=== PATIENT | male | born 1985 | race Hispanic/Latino ===

== ENCOUNTER 2019-11-22 20:42 | Emergency (ER) | payer SELFPAY ==
[~2019-11-22] VITALS: Ht 175.3 cm; Wt 68.0 kg
--- NOTE | 2019-11-22 22:04 | Emergency Department Note ---
History of Present Illnes History of Present Illness Chief Complaint: Back Pain History of Present Illness This is a 34 year old male, history of anxiety and depression, who presents with a acute exacerbation of chronic back pain issue. Patient was brought in by EMS. Patient states last week he was helping to move furniture as well as doing some painting, and then 2 days ago he began to have severe bilateral low back pain, radiating to both buttocks. He denies any numbness, tingling, lower extremity weakness, bowel or bladder dysfunction, fever, or chills. He has taken Tylenol for the pain, without relief. Patient states that he intermittently has trouble with his back, and is unaware of any specific injury. Historian: Patient Arrival Mode: [facility] Provider Required: No Onset (how long ago): day(s) (2) Location: low back Quality: sharp, stabbing, squeezing Radiation: Reports extremity (BLE) Severity: severe Onset quality: sudden Duration (how long): day(s) (2) Timing of current episode: constant Progression: unchanged Chronicity: new Relieving factors: none Exacerbating factors: none Associated symptoms: Reports denies other symptoms; Denies chest pain, Denies fever/chills, Denies nausea/vomiting Treatments prior to arrival: other (Tylenol) Risk factors: Previous Back apin Past Medical/Family History Physician Review I have reviewed the patient's past medical and family history. Any updates have been documented here. Past Medical History Recent Fever: No Clinical Suspicion of Infectio: No New/Unexplained Change in Ment: No Past Medical History: None Past Surgical History: None Other Surgery: RIGHT THUMB TENDON REPAIR Social History Smoking Cessation: Current every day smoker Counseling Performed: Yes Any Illegal Drug Use: No TB Exposure/Symptoms: No Physically hurt or threatened: No Family History Family history of heart diseas: No Other Last Tetanus: UTD Any Pre-Existing Lines (PICC,: No Review of Systems Review of Systems Constitutional: Denies chills, Denies fever EENTM: Reports no symptoms Cardiovascular: Reports no symptoms Respiratory: Reports no symptoms Gastrointestinal: Reports no symptoms Musculoskeletal: Reports back pain (low back), Reports muscle pain, Reports muscle stiffness Integumentary: Reports no symptoms Neurological: Denies numbness, Denies paresthesia, Denies tingling, Denies tremors, Denies weakness Psychological: Denies no symptoms Review of other systems: All other systems negative Physical Exam Related Data Allergies: Coded Allergies: No Known Allergies (Unverified , 11/15/12) Vital signs reviewed: Yes Physical Exam CONSTITUTIONAL Constitutional: Present well-developed, Present well-nourished; Absent distressed, Absent ill appearing HENT HENT: Present normocephalic, Present atraumatic, Present oropharynx clear/moist, Present nose normal HENT L/R: Present left ext ear normal, Present right ext ear normal EYES Eyes: Reports PERRL, Reports conjunctivae normal NECK Neck: Present ROM normal PULMONARY Pulmonary: Present effort normal, Present breath sounds normal CARDIOVASCULAR Cardiovascular: Present regular rhythm, Present heart sounds normal, Present capillary refill normal, Present normal rate GASTROINTESTINAL Abdominal: Present soft, Present nontender, Present bowel sounds normal GENITOURINARY Genitourinary: Present exam deferred SKIN Skin: Present warm, Present dry; Absent rash MUSCULOSKELETAL Musculoskeletal: Present tenderness (lumbar paraspinal muscles and bilateral glutes;), Present other (tenderness to palpation bilateral upper, mid, and lower lumbar paraspinal muscles; no significant lumbar vertebral point tenderness; positive straight leg raise bilaterally at 10;) NEUROLOGICAL Neurological: Present alert, Present oriented x 3; Absent cranial nerve deficit PSYCHOLOGICAL Psychological: Present mood/affect normal, Present judgement normal Assessment & Plan Medical Decision Making MDM - Apply ice to the area pain for 15-20 minutes 3-4 times per day, to help with pain - Take medications as prescribed. - Follow-up with your primary care physician, for further evaluation of your ongoing back issues and possibly for an MRI of the lumbar spine; Assessment & Plan Final Impression: (1) Low back pain (2) Lumbar radiculopathy (3) Anxiety Depart Disposition: HOME, S[facility] Meds Active Scripts Acetaminophen/Codeine* (TYLENOL # 3*) 1 Ea Tab, 1-2 TAB PO Q6H PRN for pain, #12 TAB 0 [address]ills [address] NOT take and drive or operate machinery. Prov:TE FRENCH MD 11/22/19 Ibuprofen (IBUPROFEN) 400 Mg Tablet, 600 MG PO Q6H for pain, #20 TAB 0 Refills Prov:TE FRENCH MD 11/22/19 Prednisone (PREDNISONE) 20 Mg Tab, 50 MG PO DAILY for back pain and inflammation, #7 TAB 0 Refills Prov:TE FRENCH MD 11/22/19 TE FRENCH MD Nov 22, 2019 22:04
[2019-11-22] MEDS ORDERED: HYDROCODONE/APAP 5MG-325MG TAB ONE (22:11)
[2019-11-22] MEDS ORDERED: HYDROCODONE/APAP 5MG-325MG TAB PO ONE (22:15)
[2019-11-22] MEDS ORDERED: PREDNISONE 20 MG TAB PO ONE (23:15)
[2019-11-22] MEDS ORDERED: PREDNISONE20 MG PO (23:15)
[2019-11-22] MEDS ORDERED: KETOROLAC TROMETHAMINE 60 MG/2 ML VIAL IM ONE (23:15)
[2019-11-22] MEDS ORDERED: TYLENOL # 31 EA PO ×2 (23:18→23:32)
[2019-11-22] MEDS ORDERED: IBUPROFEN400 MG PO (23:21)
--- OUTSIDE RECORDS SUMMARY | 2019-11-22 23:31 | XMS REPORT | Clinical Summary ---
Author Author [facility] Organization [facility] Address Unknown Phone Unavailable Care Team Providers [employer] Founder Name Role Phone Marquis Dowell MD PCP Allergies No Known Allergies Medications End Date Status Medication Sig Dispensed Refills Start Date Active diazePAM (VALIUM) 10 mg Take 1 tablet 60 tablet 2 tabletIndications: Panic by mouth 2 0 disorder times daily as needed for Anxiety. Active FLUoxetine (PROZAC) 20 mg Take 4 360 capsule 0 capsuleIndications: Panic capsules by 0 disorder mouth daily. Active buPROPion (WELLBUTRIN XL) Take 1 tablet 90 tablet 0 150 mg extended release by mouth 0 tabletIndications: Panic every disorder, Depressive morning. disorder 12/23/2018 Discontinued (Reorder) FLUoxetine (PROZAC) 20 mg Take 2 90 capsule 0 capsuleIndications: Panic capsules by 9 disorder mouth daily. 02/23/2019 Discontinued (Reorder) FLUoxetine (PROZAC) 20 mg Take 2 180 capsule 0 capsuleIndications: Panic capsules by 9 disorder mouth daily. 02/23/2019 Discontinued (Reorder) FLUoxetine (PROZAC) 20 mg Take 3 90 capsule 2 capsuleIndications: Panic capsules by 9 disorder mouth daily. 02/23/2019 Discontinued (Reorder) diazePAM (VALIUM) 10 mg Take 1 tablet 30 tablet 2 tabletIndications: Panic by mouth 9 disorder daily as needed for Anxiety. 02/23/2019 Discontinued (Reorder) diazePAM (VALIUM) 10 mg Take 1 tablet 30 tablet 2 tabletIndications: Panic by mouth 9 disorder daily as needed for Anxiety. 05/18/2019 Discontinued (Reorder) FLUoxetine (PROZAC) 20 mg Take 3 90 capsule 2 capsuleIndications: Panic capsules by 9 disorder mouth daily. 05/18/2019 Discontinued (Reorder) diazePAM (VALIUM) 10 mg Take 1 tablet 30 tablet 2 tabletIndications: Panic by mouth 9 disorder daily as needed for Anxiety. 08/16/2019 Discontinued FLUoxetine (PROZAC) 20 mg Take 4 120 capsule 2 capsuleIndications: Panic capsules by 0 disorder mouth daily. 08/16/2019 Discontinued ARIPiprazole (ABILIFY) 5 Take half to 30 tablet 2 mg tabletIndications: 1 tablet by 0 Panic disorder, SAUD mouth daily. (generalized anxiety disorder), Depressive disorder 08/16/2019 Discontinued diazePAM (VALIUM) 10 mg Take 1 tablet 30 tablet 2 tabletIndications: Panic by mouth 0 disorder daily as needed for Anxiety. 10/02/2019 Discontinued (Reorder) FLUoxetine (PROZAC) 20 mg Take 4 120 capsule 1 capsuleIndications: Panic capsules by 0 disorder mouth daily. 10/02/2019 Discontinued (Reorder) ARIPiprazole (ABILIFY) 5 Take half to 30 tablet 1 mg tabletIndications: 1 tablet by 0 Panic disorder, SAUD mouth daily. (generalized anxiety disorder), Depressive disorder 10/02/2019 Discontinued (Reorder) diazePAM (VALIUM) 10 mg Take 1 tablet 30 tablet 1 tabletIndications: Panic by mouth 0 disorder daily as needed for Anxiety. 11/16/2019 Discontinued (Reorder) FLUoxetine (PROZAC) 20 mg Take 4 120 capsule 1 capsuleIndications: Panic capsules by 0 disorder mouth daily. 11/16/2019 Discontinued (Alternate ther apy) ARIPiprazole (ABILIFY) 5 Take 1/2 to 1 30 tablet 1 mg tabletIndications: tablet by 0 Panic disorder, SAUD mouth daily. (generalized anxiety disorder), Depressive disorder 11/16/2019 Discontinued (Reorder) diazePAM (VALIUM) 10 mg Take 1 tablet 30 tablet 1 tabletIndications: Panic by mouth 0 disorder daily as needed for Anxiety. Active Problems Problem Noted Date Panic disorder 05/06/2012 Generalized anxiety disorder 05/06/2012 Back pain 08/04/2010 Ruptured extensor tendon of hand or wrist 08/29/2009 Medication refill Encounters Care Team Description Date Type Specialty Donte Arboleda MD SAUD (generalized anxiety disorder) (Prim regan Dx); Panic disorder; Depressive disorder 11/16/2019 Telemedicine Psychiatry Marquis Dowell MD Pain of joint of left ankle and foot 11/01/2019 Ancillary Radiology Procedure Marquis Dowell MD ERRONEOUS ENCOUNTER--DISREGARD (Primary Dx) 10/06/2019 Telephonic Family Practice Encounter Katerina Sampson RN 10/04/2019 Nurse Triage Donte Arboleda MD Medications 10/02/2019 Refill Psychiatry Donte Arboleda MD Medications 08/16/2019 Refill Psychiatry Donte Arboleda MD SAUD (generalized anxiety disorder) (Prim regan Dx); Panic disorder; Depressive disorder 05/18/2019 Office Visit Psychiatry Dg Caba DDS Dental calculus (Primary Dx) 03/20/2019 Office Visit Dentistry Marquis Dowell MD Livingston, Robin K, MD Panic disorder 02/23/2019 Office Visit Psychiatry Dg Caba DDS Dental decay (Primary Dx) 01/31/2019 Office Visit Dentistry Marquis Dowell MD Pain of joint of left ankle and foot (Pr imary Dx); Pain in joint, multiple sites 01/03/2019 Office Visit Family Practice Marquis Dowell MD 01/03/2019 Orders Only Family Practice Donte Arboleda MD Medications 12/23/2018 Refill Psychiatry Dg Caba DDS Dental plaque (Primary Dx); Gingivitis 12/21/2018 Office Visit Dentistry Marquis Dowell MD Pain in joint, multiple sites 11/24/2018 Ancillary Radiology Procedure Marquis Dowell MD Iron deficiency anemia, unspecified iron deficiency anemia type (Primary Dx); Pain in joint, multiple sites 11/24/2018 Office Visit Family Practice after 11/21/2018 Immunizations Name Administration Dates Next Due Influenza, 01/03/2019 (Deferred: Patie nt Refused), 01/14/2018 Vaccine<FLUCELVAX>(Multi- Dose) Tdap (Tetanus Toxoid, 01/14/2018 Reduced Diphtheria Toxoid And Acellular Pertussis, Absorbed) Family History Medical History Relation Name Comments Hypertension Mother Relation Name Status Comments Brother Alive Father Alive Mother Alive Sister Alive Sister Alive Social History Date Tobacco Use Types Packs/Day Years Used Former Smoker Cigarettes Smokeless Tobacco: Former User Tobacco Cessation: Counseling Given: No Comments: occasionally Drinks/Week oz/Week Comments Alcohol Use social Yes Food Insecurity Answer Date Recorded Within the past 12 months, you worried that your Never jessica e 01/14/2018 food would run out before you got money to buy more. Within the past 12 months, the food you bought Never true 01/14/2018 just didn't last and you didn't have mo deshawn to get more. Sex Assigned at Date Recorded Not on file Industry Job Start Date Occupation Not on file Not on file Not on file Travel End Travel History Travel Start No recent travel history available. Date Recorded COVID-19 Exposure Response 11/01/2019 11:30 AM CDT In the last month, have you been in contact with No / Unsure someone who was confirmed or suspected to have Coronavirus / COVID-19? 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 Body Mass Index Plan of Treatment Care Team Description Date Type Specialty 11/30/2019 Lab Appointment Lab Donte Arboleda MD [address] [facility] 2nd Floor [id number] [place] [address] 02/01/2020 Telemedicine Psychiatry Procedures Comments Procedure Name Priority Date/Time Associated Diag nosis XRAY FOOT 3 VIEWS MIN Routine 11/01/2019 Pain of joint of left 11:46 AM CDT ankle and foot FECAL OCCULT BLOOD Routine 12/06/2018 Iron defici ency anemia, 4:47 PM CDT unspecified iron deficiency anemia type XRAY HAND 2 VIEWS Routine 11/24/2018 Pain in join t, multiple 4:28 PM CDT sites XRAY SHOULDER 2 VIEWS MIN Routine 11/24/2018 Pain in joint, multiple 4:28 PM CDT sites XRAY NECK SOFT TISSUE Routine 11/24/2018 Pain in joint, multiple 4:28 PM CDT sites HGB FRACTIONATION Routine 11/24/2018 Iron deficie ncy anemia, 4:10 PM CDT unspecified iron deficiency anemia type CCP IGG ABS Routine 11/24/2018 Iron deficiency anemia, 4:10 PM CDT unspecified iron deficiency anemia type Pain in joint, multiple sites RA FACTOR Routine 11/24/2018 Iron deficiency anemia, 4:10 PM CDT unspecified iron deficiency anemia type Pain in joint, multiple sites VIVEK Routine 11/24/2018 Iron deficiency anemia, 4:10 PM CDT unspecified iron deficiency anemia type Pain in joint, multiple sites SED RATE Routine 11/24/2018 Iron deficiency anemia, 4:10 PM CDT unspecified iron deficiency anemia type Pain in joint, multiple sites CBC Routine 11/24/2018 Iron deficiency anemia, 4:10 PM CDT unspecified iron deficiency anemia type CBC/DIFF Routine 11/24/2018 Iron deficiency anemia, 4:10 PM CDT unspecified iron deficiency anemia type after 11/21/2018 Results * XRAY FOOT 3 VIEWS MIN (11/01/2019 11:46 AM CDT) Specimen Impressions Performed At IMPRESSION: [facility] No acute osseous lesion. Signed By: Juan Adams MD, 11/01/2019 1:07 PM Narrative Performed At Left foot 3 views SMS HISTORY: left foot pain COMPARISON: None DISCUSSION: No displaced fracture or malalignment. The joint spaces are well maintained wi thout definite osseous erosion. The visualized soft tissues appear unre markable. Procedure Note Jeffery Barr/Yudelkaog In - 11/01/2019 1:13 PM CDT Left foot 3 views HISTORY: left foot pain COMPARISON: None DISCUSSION: No displaced fracture or malalignment. The joint spaces are well maintained without definite osseous erosion. The visualized soft tissues appear unremarkable. IMPRESSION IMPRESSION: No acute osseous lesion. Signed By: Juan Adams MD, 11/01/2019 1:07 PM Performing Organization Address [facility] Ph one Number SMS * Fecal Occult Blood (12/06/2018 4:47 PM CDT) Occult Blood Negative Negative [facility] Specimen Stool - Feces Performing Organization Address [facility] Ph one Number [facility] [address] [place] [address] [facility] * XRAY HAND 2 VIEWS (11/24/2018 4:28 PM CDT) Specimen Impressions Performed At IMPRESSION: [facility] No acute radiographic abnormalities. Dictated By: Eldon Mcnair MD, 8:56 AM I have reviewed the study and agree wit h the findings in this report. Signed By: Sohail Quiñones DO, 11/25/2018 10 :44 AM Narrative Performed At EXAM: XRAY HAND 2 VIEWS - 2 Images [facility] HISTORY: hand pain COMPARISON: Right finger radiograph fro 08/19/2009 DISCUSSION: Bone: No evidence of a fracture or malalignme nt. Joints: The joint spaces are well maintained an d no erosions. Soft tissues: Unremarkable. Procedure Note Jeffery Barr/Mammog In - 11/25/2018 10:50 AM CDT EXAM: XRAY HAND 2 VIEWS - 2 Images HISTORY: hand pain COMPARISON: Right finger radiograph from 08/19/2009 DISCUSSION: Bone: No evidence of a fracture or malalignment. Joints: The joint spaces are well maintained and no erosions. Soft tissues: Unremarkable. IMPRESSION IMPRESSION: No acute radiographic abnormalities. Dictated By: Eldon Mcnair MD, 11/25/2018 8:56 AM I have reviewed the study and agree with the findings in this report. Signed By: Sohail Quiñones DO, 11/25/2018 10:44 AM Performing Organization Address [facility] one Number SMS * XRAY SHOULDER 2 VIEWS MIN (11/24/2018 4:28 PM CDT) Specimen Impressions Performed At IMPRESSION: [facility] No acute radiographic abnormalities. Dictated By: Eldon Mcnair MD, 9 9:04 AM I have reviewed the study and agree wit h the findings in this report. Signed By: Sohail Quiñones DO, 11/25/2018 10 :44 AM Narrative Performed At EXAM: XRAY RIGHT SHOULDER 2 VIEWS MIN - 3 Images [facility] HISTORY: right shoulder pain COMPARISON: None DISCUSSION: Bone: No evidence of a fracture or malalignme nt. Joints: The joint spaces are well maintained an d no erosions. Adequate internal and external rotation Soft tissues: Unremarkable. Procedure Note Interface, Rad/Mammog In - 11/25/2018 10:49 AM CDT EXAM: XRAY RIGHT SHOULDER 2 VIEWS MIN - 3 Images HISTORY: right shoulder pain COMPARISON: None DISCUSSION: Bone: No evidence of a fracture or malalignment. Joints: The joint spaces are well maintained and no erosions. Adequate internal and external rotation Soft tissues: Unremarkable. IMPRESSION IMPRESSION: No acute radiographic abnormalities. Dictated By: Eldon Mcnair MD, 11/25/2018 9:04 AM I have reviewed the study and agree with the findings in this report. Signed By: Sohail Quiñones DO, 11/25/2018 10:44 AM Performing Organization Address [facility] one Number SMS * XRAY NECK SOFT TISSUE (11/24/2018 4:28 PM CDT) Specimen Impressions Performed At IMPRESSION: [facility] No acute radiographic abnormality. If concern for soft tissue mass recomme nd CT with contrast of the soft tissue neck for further evaluation. Dictated By: Eldon Mcnair MD, 9 9:35 AM I have reviewed the study and agree wit h the findings in this report. Signed By: Sohail Quiñones DO, 11/25/2018 10 :44 AM Narrative Performed At EXAM: Soft Tissue Neck RADIOGRAPH SMS TECHNIQUE 2 images HISTORY: neck pain COMPARISON: None DISCUSSION: On the lateral view, the cervical spine is visualized from the level of the skull base to C6. Mild straightening of the normal cervic al lordosis No acute displaced fracture, within the limitations of this exam. Discs and Uncovertebral Joints: The disc spaces are well-maintained. Facet Joints: Unremarkable. Soft Tissue: Questionable soft tissue fullness at th e base of the left neck. Procedure Note Interface, Rad/Mammog In - 11/25/2018 10:49 AM CDT EXAM: Soft Tissue Neck RADIOGRAPH TECHNIQUE 2 images HISTORY: neck pain COMPARISON: None DISCUSSION: On the lateral view, the cervical spine is visualized from the level of the skull base to C6. Mild straightening of the normal cervical lordosis No acute displaced fracture, within the limitations of this exam. Discs and Uncovertebral Joints: The disc spaces are well-maintained. Facet Joints: Unremarkable. Soft Tissue: Questionable soft tissue fullness at the base of the left neck. IMPRESSION IMPRESSION: No acute radiographic abnormality. If concern for soft tissue mass recommend CT with contrast of the soft tissue neck for further evaluation. Dictated By: Eldon Mcnair MD, 11/25/2018 9:35 AM I have reviewed the study and agree with the findings in this report. Signed By: Sohail Quiñones DO, 11/25/2018 10:44 AM Performing Organization Address City/State/Zipcode Ph one Number SMS * CBC/Diff (11/24/2018 4:10 PM CDT) WBC 10.7 4.5 - 12.0 K/uL [facility] RBC 4.63 4.60 - 6.20 M/uL [facility] Hemoglobin 14.2 14.0 - 18.0 g/dL [facility] Hematocrit 44.1 40.0 - 54.0 % [facility] MCV 95.2 (H) 82.0 - 92.0 fL [facility] MCH 30.7 27.0 - 31.0 pg [facility] MCHC 32.2 32.0 - 36.0 g/dL [facility] RDW 45.3 (H) 35.1 - 43.9 fL [facility] Platelet 237 150 - 400 K/uL [facility] Mean Platelet 11.2 9.4 - 12.4 fL [facility] Percent NRBC 0.0 % [facility] Neutrophil 58.3 34.0 - 67.9 % [facility] Lymphs 31.1 21.8 - 50.0 % [facility] Monocytes 7.6 5.3 - 12.0 % [facility] Eos 1.4 0.8 - 5.0 % [facility] Basos 0.7 0.2 - 1.2 % [facility] Immature 0.9 (H) 0.0 - 0.5 % [facility] Granul[facility] Neutrophils 6.23 (H) 1.78 - 5.36 K/uL [facility] (Absolute) [facility] Lymphs 3.32 1.32 - 3.57 K/uL [facility] (Absolute) [facility] Monocytes(Absol 0.81 0.30 - 0.82 K/uL [facility] anne marie) LABORAT[facility] Eos (Absolute) 0.15 0.04 - 0.54 K/uL [facility] Baso (Absolute) 0.08 0.01 - 0.08 K/uL [facility] Immature Grans 0.10 (H) 0.00 - 0.03 K/uL [facility] (Abs) [facility] Absolute NRBC 0.00 K/uL [facility] Specimen Blood Performing Organization Address [facility] one Number [facility] [address] [place] [address] * CCP Anitbodies IgG & IgA (11/24/2018 4:10 PM CDT) CCP Antibodies 6 0 - 19 units BT [facility] IgG/IgA Comment: Negative <20 Weak positive 20 - 39 Moderate positive 40 - 59 Strong positive >59 Specimen Blood Narrative Performed At Performed at: 01 - [facility] [address] [place] [address] [address]: Aurora Gautam MD, Phone : [phone] Performing Organization Address [facility] one Number [facility] [address] [place] [address] * SED Rate (11/24/2018 4:10 PM CDT) Sed Rate 1 0-<15 mm/Hr [facility] Specimen Blood Performing Organization Address [facility] one Number [facility] [address] [place] [address] * RA Factor (11/24/2018 4:10 PM CDT) RA <10 <14 IU/mL [facility] Specimen Blood Performing Organization Address [facility] one Number [facility] [address] [address] * Hgb Fractionation (11/24/2018 4:10 PM CDT) Hemoglobin A 97.3 95.0 - 98.0 % [facility] Hemoglobin A2 2.7 2.2 - 3.3 % [facility] Interpretation Hemoglobin pattern consistent [facility] with normal phenotype. LABORATORY Kanu Reilly MD / [id number] December 01, 2018 1:16 PM Specimen Blood Performing Organization Address [facility] Ph one Number [facility] [address] [place] [address] * VIVEK (11/24/2018 4:10 PM CDT) VIVEK Screen Negative Negative [facility] Specimen Blood Performing Organization Address [facility] Ph one Number [facility] [address] [place] [address] after 11/21/2018 Insurance Type Payer Benefit Subscriber ID Effective Phone Address Plan / Dates Group [facility] xxxxxx 2019- [address] [employer] FAMILY / [id number] [place], [place] [address] [facility] SELF-PA[employer] SELF-PAY xxxxxxxxx 2019- [phone] [address] [place] [address] [facility] PLAN FINANCIAL xxxxxx 2019- [phone] / [place] [address]
--- OUTSIDE RECORDS SUMMARY | 2019-11-22 23:31 | XMS REPORT | Continuity of Care Document ---
Author Author [employer] Address Unknown Phone Unavailable Care Team Providers Care Data Collection Specialist Name Role Phone [employer] Unavailable Un available Problems Problem Status Onset Date Classification Date Reported Comments Source Anxiety disorder, unspecified 01/01/2018 07/21/2018 [facility] Hallucinations, unspecified 01/01/2018 07/21/2018 [facility] SUICIDAL IDEATION Active 01/01/2018 [facility] Discharge Diagnosis: Anxiety attack 12/08/2014 12/11/2014 [facility] ANXIETY Active 12/08/2014 [facility] Discharge Diagnosis: Back pain 12/25/2013 12/28/2013 [facility] Discharge Diagnosis: Muscle strain 12/25/2013 12/28/2013 [facility] BACK PAIN Active 12/25/2013 [facility] Auditory hallucinations 07/21/2018 [facility] Visual hallucinations 07/21/2018 [facility] Other chest pain 07/21/2018 [facility] Major depressive disorder, single episode, unspecified 07/21/2018 [facility] Personal history of self-harm 07/21/2018 [facility] Patient's other noncompliance with medication regimen 07/21/2018 [facility] Family history of other mental and behavioral disorder s 07/21/2018 [facility] Allergy status to other drugs, medicamen ts and biological substances status 07/21/2018 [facility] Medications Medication Details Route Status Patient Instructions Ordering Provider Order Date Source Diazepam 10 MG Oral Tablet [Valium] 10 mg = 1 tab, PO, BID, PRN Anxiety, # 14 tab, 0 Refill(s) Active 01/02/2018 [facility] Acetaminophen Notes: Do not ex ceed 4 gm/day. (Same as: Tylenol) Inactive 01/01/2018 [facility] Valium Notes: (Same as: Valium) Inactive 01/01/2018 [facility] Lorazepam 1 MG Oral Tablet [Ativan] 1 mg = 1 tab, PO, TID, PRN Anxiety, X 6 day, # 20 tab, 0 Refill(s) Active 12/08/2014 [facility] Ativan 2 mg, Route: PO, Drug f orm: TAB, ONCE, Dosing Weight 75, kg, Priority: STAT, Start date: 12/08/14 8:22:00, Stop date: 12/08/14 8:22:00 Inactive 12/08/2014 [facility] Naproxen 500 MG Oral Tablet [Naprosyn] 500 mg = 1 tab, PO, BID, Pain, # 30 tab, 0 Refill(s) Active 12/25/2013 [facility] Cyclobenzaprine hydrochloride 10 MG Oral Tablet [Flexeril] 10 mg, PO, TID, Muscle Spasm, # 30 tab, 0 Refill(s) Active 12/25/2013 [facility] tramadol hydrochloride 50 MG Oral Tablet [Ultram] 100 mg = 2 tab, PO, Q6H, pain, # 20 tab, 0 Refill(s) Active 12/25/2013 [facility] Acetaminophen 325 MG / Hydrocodone Jordyn trate 10 MG Oral Tablet [Ruskin 10/325] 1 tab, Route: PO, Dosing Weight 68.636, kg, ONCE, Start date: 12/25/13 13:37:00, Stop date: 12/25/13 13:37:00 Inactive 12/25/2013 [facility] Ketorolac 60 mg, Route: IM, Dr ug form: INJ, ONCE, Dosing Weight 68.636, kg, Priority: STAT, Start date: 12/25/13 13:37:00, Stop date: 12/25/13 13:37:00 Inactive 12/25/2013 [facility] Flexeril 10 mg, Route: PO, ONC E, Dosing Weight 68.636, kg, Priority: STAT, Start date: 12/25/13 13:36:00, Stop date: 12/25/13 13:36:00 Inactive 12/25/2013 [facility] Allergies, Adverse Reactions, Alerts Substance Category Reaction Severity Reaction type Status Date Reported Comments Source iodine Assertion Drug allergy Active [facility] No Known Medication Allergies Assertion Drug aller gy [facility] Immunizations No Data Provided for This Section Results Order Name Results Value Reference Range Date Interpretation Comments Source DRUG SCREEN U Valeria Scr Nega tive *NA* (01/01/18 8:34 PM) Negative 01/02/2018 [facility] DRUG SCREEN U Amph Scr Nega tive *NA* (01/01/18 8:34 PM) Negative 01/02/2018 [facility] DRUG SCREEN U Phencyclidine Scr Nega tive *NA* (01/01/18 8:34 PM) Negative 01/02/2018 [facility] DRUG SCREEN UDS Note See Note (01/01/18 8:34 PM) 01/02/2018 [facility] DRUG SCREEN U Benzodiaz Scr Nega tive *NA* (01/01/18 8:34 PM) Negative 01/02/2018 [facility] DRUG SCREEN U Cocaine Scr Nega tive *NA* (01/01/18 8:34 PM) Negative 01/02/2018 [facility] DRUG SCREEN U Cannab Scr Nega tive *NA* (01/01/18 8:34 PM) Negative 01/02/2018 [facility] DRUG SCREEN U Opiate Scr Nega tive *NA* (01/01/18 8:34 PM) Negative 01/02/2018 [facility] CARDIAC ENZYMES Troponin-I <0.02 0.00 - 0.40 01/01/2018 [facility] CHEM PANEL A/G Ratio 1.2 0.7 - 1.6 01/01/2018 [facility] CHEM PANEL Globulin 3.3 2.7 - 4.2 01/01/2018 [facility] CHEM PANEL B/C Ratio 16 6 - 25 01/01/2018 [facility] CHEM PANEL AGAP 10.1 10.0 - 20.0 01/01/2018 [facility] CHEM PANEL AST 9 0 - 37 01/01/2018 [facility] CHEM PANEL ALT 19 0 - 65 01/01/2018 [facility] CHEM PANEL Albumin Lvl 3.9 3.5 - 5.0 01/01/2018 [facility] CHEM PANEL Alk Phos 71 39 - 136 01/01/2018 [facility] CHEM PANEL Calcium Lvl 8.9 8.5 - 10.5 01/01/2018 [facility] CHEM PANEL CO2 32 24 - 32 01/01/2018 [facility] CHEM PANEL Chloride Lvl 103 95 - 109 01/01/2018 [facility] CHEM PANEL Total Protein 7.2 6.4 - 8.4 01/01/2018 [facility] CHEM PANEL Creatinine Lvl 0.80 0.50 - 1.40 01/01/2018 [facility] CHEM PANEL BUN 13 7 - 22 01/01/2018 [facility] CHEM PANEL Potassium Lvl 4.1 3.5 - 5.1 01/01/2018 [facility] CHEM PANEL Sodium Lvl 141 135 - 145 01/01/2018 [facility] CHEM PANEL Glucose Lvl 88 70 - 99 01/01/2018 [facility] CHEM PANEL Bili Total 0.3 0.2 - 1.3 01/01/2018 [facility] CHEM PANEL eGFR 119 01/01/2018 Result Comment: The eGFR is calculated using the CKD-EPI formula. In most young, healthy individuals the eGFR will be >90 mL/min/1.73m2. The eGFR declines with age. An eGFR of 60-89 may be normal in some populations, particularly the elderly, for whom the CKD-EPI formula has not been extensively validated. Use of the eGFR is not recommended in the following populations:

Individuals with unstable creatinine concentrations, including patients and those with serious co-morbid conditions.

Patients with extremes in muscle mass or diet.

The data above are obtained from the National Kidney Disease Education Program (NKDEP) which additionally recommends that when the eGFR is used in patients with extremes of body mass index for purposes of drug dosing, the eGFR should be multiplied by the estimated BMI. [facility] HEMATOLOGY Segs 53.6 45.0 - 75.0 01/01/2018 [facility] HEMATOLOGY Lymphocytes 36.0 20.0 - 40.0 01/01/2018 [facility] HEMATOLOGY Monocytes 8.4 2.0 - 12.0 01/01/2018 [facility] HEMATOLOGY Lymphocytes # 2.7 1.0 - 5.5 01/01/2018 [facility] HEMATOLOGY Monocytes # 0.6 0.0 - 0.8 01/01/2018 [facility] HEMATOLOGY Basophils # 0.1 0.0 - 0.2 01/01/2018 [facility] HEMATOLOGY Eosinophils # 0.1 0.0 - 0.5 01/01/2018 [facility] HEMATOLOGY Basophils 0.8 0.0 - 1.0 01/01/2018 [facility] HEMATOLOGY Eosinophils 1.2 0.0 - 4.0 01/01/2018 [facility] HEMATOLOGY Neutrophils # 4.0 1.5 - 8.1 01/01/2018 [facility] HEMATOLOGY Hct 38.1 42.0 - 54.0 01/01/2018 [facility] HEMATOLOGY MCV 91.2 80.0 - 94.0 01/01/2018 [facility] RBC 4.18 4.70 - 6.10 01/01/2018 [facility] Hgb 13.0 14.0 - 18.0 01/01/2018 [facility] HEMATOLOGY WBC 7.4 3.7 - 10.4 01/01/2018 [facility] MPV 7.8 7.4 - 10.4 01/01/2018 [facility] MCH 31.2 27.0 - 31.0 01/01/2018 [facility] MCHC 34.2 32.0 - 36.0 01/01/2018 [facility] HEMATOLOGY RDW 14.0 11.5 - 14.5 01/01/2018 [facility] HEMATOLOGY Platelet 236 133 - 450 01/01/2018 [facility] TOXICOLOGY Etoh (%) <0.003 01/01/2018 [facility] TOXICOLOGY Ethanol Lvl <3 01/01/2018 [facility] TOXICOLOGY Acetaminoph Lvl <2 (01/01/18 4:22 PM) - 01/01/2018 [facility] TOXICOLOGY Salicylate Lvl 2.7 0.0 - 30.0 01/01/2018 [facility] IMMUNOLOGY HIV. Negat nadira *NA* (12/25/13 2:56 PM) Negative 12/25/2013 [facility] IMMUNOLOGY CDC HIV 4th GEN Negat nadira (12/25/13 2:56 PM) Negative 12/25/2013 [facility] Pathology Reports No Data Provided for This Section Diagnostic Reports Report Value Date Source Chest 1view DX EXAM: XR CHEST 1 VIEW DATE: 01/01/2018 5:55 PM CDT INDICATION: Chest pain. COMPARISON: None Available. TECHNIQUE: Frontal radiograph of the chest was obtained. FINDINGS: No focal consolidation or pneumothorax is identified. The cardiomediastinal silhouette is within normal limits. The costophrenic recesses are sharp and without effusion. No acute osseous abnormality is noted. IMPRESSION: No acute cardiopulmonary abnormality. SL: [id number] 01/01/2018 [facility] Consultation Notes No Data Provided for This Section Discharge Summaries No Data Provided for This Section History and Physicals No Data Provided for This Section Vital Signs Vital Sign Value Date Comments Source Systolic (mm Hg) 88 01/02/2018 [facility] Diastolic (mm Hg) 57 01/02/2018 [facility] Temperature Oral (F) 97.8 F 01/02/2018 [facility] Respitory Rate 15 01/02/2018 [facility] Respitory Rate 21 01/02/2018 [facility] Systolic (mm Hg) 120 01/02/2018 [facility] Diastolic (mm Hg) 72 01/02/2018 [facility] Temperature Oral (F) 98.1 F 01/02/2018 [facility] Respitory Rate 22 01/02/2018 [facility] Systolic (mm Hg) 124 01/02/2018 [facility] Diastolic (mm Hg) 66 01/02/2018 [facility] Temperature Oral (F) 98.1 F 01/02/2018 [facility] Heart Rate 70 01/01/2018 [facility] Height 177.8 cm 01/01/2018 [facility] Weight 56.818 01/01/2018 [facility] BMI Calculated 17.97 01/01/2018 [facility] Systolic (mm Hg) 123 12/08/2014 [facility] Diastolic (mm Hg) 79 12/08/2014 [facility] Temperature Oral (F) 98.3 F 12/08/2014 [facility] Heart Rate 90 12/08/2014 [facility] Respitory Rate 18 12/08/2014 [facility] Systolic (mm Hg) 137 12/08/2014 [facility] Diastolic (mm Hg) 91 12/08/2014 [facility] Weight 75 0 12/08/2014 [facility] Respitory Rate 18 12/08/2014 [facility] Heart Rate 113 12/08/2014 [facility] Height 175.26 cm 12/08/2014 [facility] BMI Calculated 24.42 12/08/2014 [facility] Temperature Oral (F) 98.6 F 12/08/2014 [facility] Systolic (mm Hg) 124 12/25/2013 [facility] Respitory Rate 18 12/25/2013 [facility] Diastolic (mm Hg) 89 12/25/2013 [facility] Temperature Oral (F) 98.3 F 12/25/2013 [facility] Heart Rate 71 12/25/2013 [facility] BMI Calculated 22.35 12/25/2013 [facility] Height 175.26 cm 12/25/2013 [facility] Weight 68.636 12/25/2013 [facility] Temperature Oral (F) 98.3 F 12/25/2013 [facility] Heart Rate 69 12/25/2013 [facility] Respitory Rate 18 12/25/2013 [facility] Systolic (mm Hg) 148 12/25/2013 [facility] Diastolic (mm Hg) 86 12/25/2013 [facility] Encounters Location Location Details Encounter Type Encounter Number Reason For Visit Attending Provider ADM Date DC Date Status Source [facility] [id number] 00 Rome Izquierdo 12/25/2013 12/25/2013 [facility] [id number] Aleta Mcneill 12/08/2014 12/08/2014 [facility] [id number] tSephen Tidwell 01/01/2018 01/02/2018 [facility] Outpatient [id number] CHRISTIANO PACHECO 01/03/2018 [facility] [id number] SHAMIKA HURLEY 03/03/2018 Active [facility] Procedures No Data Provided for This Section Assessment and Plan No Data Provided for This Section Plan of Care No Data Provided for This Section Social History Social History Date Source Social History TypeResponse Substance Abuse Use: Current. Type: Marijuana. 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 01/03/2018 [facility] Family History No Data Provided for This Section Advance Directives No Data Provided for This Section Functional Status No Data Provided for This Section
--- OUTSIDE RECORDS SUMMARY | 2019-11-22 23:32 | XMS REPORT | Continuity of Care Document ---
Author Author [facility] t Organization [facility] Address [address] [place] [address] Phone Unavailable Care Team Providers Care Hem Marker Name Role Phone Delmer SARABIA, Lito Cho PCP Robles SARABIA, Hiwot Kent Attphys Lito Dowell MD Attphys Sampson RN, Bert Borges Attphys Unavailable Rosales ELKINSS, RobertaInés Attphys Ren Tidwell Attphys Aleta Mcneill Attphys IzquierdoDom vicente Attphys Payers Payer Name Policy Type Policy Number Effective Date Expiration Date S jelena [employer] [employer] [facility] [employer] [id number], [place] [address] xxxxxx 2019 00:00:00 2020 23:59:59 [facility] QGTC-[id number] UNSCREENEDxxxxxxxx [id number] [place] [address] xxxxxxxxx 2019 00:00:00 [facility] PLANFINANCIAL ASSISTANCE PROGRAMxxx [id number] [place] [address] xxxxxx 2019 00:00:00 11-12 23:59:59 [facility] Problems Condition Name Condition Details Condition Category Status Onset Date Resolution Date Last Treatment Date Treating Clinician Comments Source SUICIDAL IDEATION SUIC IDAL IDEATION Active 01/01/2018 [facility] Active 2018-01-01 00:00:00 2018-01-01 16:18:00 [facility] ANXIETY ANXI ETY Active 12/08/2014 [facility] Active 2014-12-08 00:00:00 2014-12-08 08:41:00 [facility] BACK PAIN BACK PAIN Active 12/25/2013 [facility] Active 2013-12-25 00:00:00 2013-12-25 13:48:00 [facility] Panic disorder Panic disorder Disease Active 2012-05-06 00:00:00 [facility] Generalized anxiety disorder Generalized anxiety disorder Disease Active 2012-05-06 00:00:00 [facility] Back pain Back pain Disease Active 2010-08-04 00:00:00 [facility] Ruptured extensor tendon of hand or wrist Ruptured ext ensor tendon of hand or wrist Disease Active 2009-08-29 00:00:00 [facility] Auditory hallucinations Ryan tory hallucinations 07/21/2018 [facility] Problem 2018-07-21 12:28:53 [facility] Visual hallucinations Visu al hallucinations 07/21/2018 [facility] 2018-07-21 12:28:53 M pietro Guzmán Other chest pain Othe r chest pain 07/21/2018 [facility] 2018-07-21 12:28:53 Nh rafaela Santosann Major depressive disorder, single episode, unspecified Major depressive disorder, single episode, unspecified 07/21/2018 [facility] 2018-07-21 12:28:53 [facility] Personal history of self-harm Personal history of self- harm 07/21/2018 [facility] 2018-07-21 12:28:5 3 [facility] Patient's other noncompliance with medication regimen Patient's other noncompliance with medication regimen 07/21/2018 [facility] 2018-07-21 12:28:53 [facility] Family history of other mental and behavioral disorder s Family history of other mental and behavioral disorders 07/21/2018 [facility] 2018-07-21 12:28:53 [facility] Allergy status to other drugs, medicaments and biologi josee substances status Allergy status to other drugs, medicaments and biological substances status 07/21/2018 [facility] 07-21 12:28:53 [facility] Medication refill Medication refill Disease Active [facility] Anxiety disorder, unspecified Anxiety disorder, unspecified 01/01/2018 07/21/2018 [facility] 31-12-19 05:00:00 2018-07-21 12:28:53 2018-07-21 12:28:53 [facility] Hallucinations, unspecified Hernandez llucinations, unspecified 01/01/2018 07/21/2018 [facility] 2018-01-01 05:0 0:00 2018-07-21 12:28:53 2018-07-21 12:28:53 [facility] Discharge Diagnosis: Anxiety attack Discharge Diagnosis: Anxiety attack 12/08/2014 12/11/2014 [facility] 2014-12-08 05:00:00 2014-12-11 02:44:52 2014-12-11 02:44:52 [facility] Discharge Diagnosis: Back pain Discharge Diagnosis: Back pain 12/25/2013 12/28/2013 [facility] 2013-12-13 3 05:00:00 2013-12-28 12:51:01 2013-12-28 12:51:01 [facility] Discharge Diagnosis: Muscle strain Discharge Diagnosis: Muscle strain 12/25/2013 12/28/2013 [facility] 2013-12-25 05:00:00 2013-12-28 12:51:01 2013-12-28 12:51:01 Jon Guzmán Allergies, Adverse Reactions, Alerts Allergy Name Allergy Type Status Severity Reaction(s) Onset Date Inacti ve Date Treating Clinician Comments Source No Known Allergies DA Active U 2019-10-30 00:00:00 [facility] No Known Allergies DA Active U 2019-10-27 00:00:00 [facility] No Known Allergies DA Active U 2019-03-01 00:00:00 [facility] No Known Allergies DA Active U 2019-02-05 00:00:00 [facility] No Known Allergies DA Active U 2018-01-11 00:00:00 [facility] No Known Allergies DA Active U 2016-09-25 00:00:00 [facility] No Known Allergies DA Active U 2011-08-12 00:00:00 [facility] iodine iodine Active [facility] Donte stahl No Known Medication Allergies No Known Medication Allergies Active [facility] Family History Family Member Diagnosis Comments Start Date Stop Date Source Natural mother Hypertension Sin holden Social History Social Habit Start Date Stop Date Quantity Comments Source History of tobacco use Cigarette Smoker [facility] Alcohol Comment social [place] He alth Sex [facility]igned At [facility] Exposure to SARS-CoV-2 (event) Not sure [facility] Alcohol intake 2019-03-20 00:00:00 2019-03-20 00:00:00 Current drinker of alcohol (finding) [facility] History SDLA Food Worry 2018-01-14 00:00:00 2018-01-14 00:00:00 1 [facility] History SDLA Food Scarcity 2018-01-14 00:00:00 2018-01-14 00:00:00 1 [facility] Social History 2018-01-03 15:15:55 2018-01-03 15:15:55 Jon Guzmán Tobacco Comment 2009-08-29 00:00:00 2009-08-29 00:00:00 occasionally [facility] Smoking Status Start Date Stop Date Source Former smoker 2019-03-20 00:00:00 2019-03-20 00:00:00 [facility] Medications Ordered Medication Name Filled Medication Name Start Date Stop Da te Current Medication? Ordering Clinician Indication Dosage Frequency Signature (SIG) Comments Components Source diazePAM (VALIUM) 10 mg tablet 2019-11-16 00:00:00 Yes Panic disorder 10mg Take 1 tablet by mouth 2 times daily as needed for Anx iety. [facility] FLUoxetine (PROZAC) 20 mg capsule 2019-11-16 00:00:00 Ye s Panic disorder 80mg QD Take 4 capsules by mouth daily. [facility] buPROPion (WELLBUTRIN XL) 150 mg extended release tablet 2019-11-16 00:00:00 Yes Depressive disorder 150mg Take 1 tablet by harsh th every morning. [facility] FLUoxetine (PROZAC) 20 mg capsule 2019-10-02 00:00:00 2019 00:00:00 No Panic disorder 80mg QD Take 4 capsules by mouth daily. [facility] ARIPiprazole (ABILIFY) 5 mg tablet 2019-10-02 00:00:00 00:00:00 No Depressive disorder 2.5mg QD Take 1/2 to 1 tablet by mouth daily. [facility] diazePAM (VALIUM) 10 mg tablet 2019-10-02 00:00:00 3 00:00:00 No Panic disorder 10mg Take 1 tablet by mouth daily as needed for Anxiety. [facility] FLUoxetine (PROZAC) 20 mg capsule 2019-08-16 00:00:00 2019 00:00:00 No Panic disorder 80mg QD Take 4 capsules by mouth daily. [facility] ARIPiprazole (ABILIFY) 5 mg tablet 2019-08-16 00:00:00 00:00:00 No Depressive disorder 2.5mg QD Take half to 1 tablet by mout h daily. [facility] diazePAM (VALIUM) 10 mg tablet 2019-08-16 00:00:00 2019-09-14 00:00:00 No Panic disorder 10mg Take 1 tablet by mouth daily as needed for Anxiety. [facility] FLUoxetine (PROZAC) 20 mg capsule 2019-05-18 00:00:00 2019 00:00:00 No Panic disorder 80mg QD Take 4 capsules by mouth daily. [facility] ARIPiprazole (ABILIFY) 5 mg tablet 2019-05-18 00:00:00 202 00:00:00 No Depressive disorder 2.5mg QD Take half to 1 tablet by mout h daily. [facility] diazePAM (VALIUM) 10 mg tablet 2019-05-18 00:00:00 3 00:00:00 No Panic disorder 10mg Take 1 tablet by mouth daily as needed for Anxiety. [facility] FLUoxetine (PROZAC) 20 mg capsule 2019-02-23 00:00:00 2019 00:00:00 No Panic disorder 60mg QD Take 3 capsules by mouth daily. [facility] diazePAM (VALIUM) 10 mg tablet 2019-02-23 00:00:00 5 00:00:00 No Panic disorder 10mg Take 1 tablet by mouth daily as needed for Anxiety. [facility] FLUoxetine (PROZAC) 20 mg capsule 2019-02-23 00:00:00 2018 00:00:00 No Panic disorder 60mg QD Take 3 capsules by mouth daily. [facility] diazePAM (VALIUM) 10 mg tablet 2019-02-23 00:00:00 2019-02-12 2 00:00:00 No Panic disorder 10mg Take 1 tablet by mouth daily as needed for Anxiety. [facility] diazePAM (VALIUM) 10 mg tablet 2019-02-23 00:00:00 2019-02-12 2 00:00:00 No Panic disorder 10mg Take 1 tablet by mouth daily as needed for Anxiety. [facility] FLUoxetine (PROZAC) 20 mg capsule 2018-12-26 00:00:00 2018 00:00:00 No Panic disorder 40mg QD Take 2 capsules by mouth daily. [facility] FLUoxetine (PROZAC) 20 mg capsule 2018-11-17 00:00:00 2018 00:00:00 No Panic disorder 40mg QD Take 2 capsules by mouth daily. [facility] Diazepam 10 MG Oral Tablet [Valium] 2018-01-02 01:47:00 Yes 10 mg = 1 tab, PO, BID, PRN Anxiety, # 14 tab, 0 Refill(s) [facility] Acetaminophen 2018-01-01 22:57:00 No Notes: Do not exceed 4 gm/day. (Same as: Tylenol) [facility] Valium 2018-01-01 22:57:00 No Notes: (Same as: Valium) [facility] MG Oral Tablet [Ativan] 2014-12-08 13:25:00 Yes 1 mg = 1 tab, PO, TID, PRN Anxiety, X 6 day, # 20 tab, 0 Refill(s) Jon Guzmán Ativan 2014-12-08 13:22:00 No 2 mg, Route: PO, Drug form: TAB, ONCE, Dosing Weight 75, kg, Priority: STAT, Start date: 12/08/14 8:22:00, Stop date: 12/08/14 8:22:00 [facility] Naproxen 500 MG Oral Tablet [Naprosyn] 2013-12-25 19:49:00 Yes 500 mg = 1 tab, PO, BID, Pain, # 30 tab, 0 Refill(s) [facility] Cyclobenzaprine hydrochloride 10 MG Oral Tablet [Flexeril] 2013-12-25 19:49:00 Yes 10 mg, PO, TID, Muscle Spasm, # 30 tab, 0 Refill(s) [facility] tramadol hydrochloride 50 MG Oral Tablet [Ultram] 2013-12-25 19:49:00 Yes 100 mg = 2 tab, PO, Q6H, pain, # 20 tab, 0 Refi ll(s) [facility] Acetaminophen 325 MG / Hydrocodone Bitartrate 10 MG Or al Tablet [Lincoln 10/325] 2013-12-25 18:37:00 No 1 ta b, Route: PO, Dosing Weight 68.636, kg, ONCE, Start date: 12/25/13 13:37:00, Stop date: 12/25/13 13:37:00 [facility] Ketorolac 2013-12-25 18:37:00 No 60 mg, Route: IM, Drug form: INJ, ONCE, Dosing Weight 68.636, kg, Priority: STAT, Start date: 12/25/13 13:37:00, Stop date: 12/25/13 13:37:00 [facility] romeroeric Flexeril 2013-12-25 18:36:00 No 10 mg, Route: PO, ONCE, Dosing Weight 68.636, kg, Priority: STAT, Start date: 12/25/13 13:36:00, Stop date: 12/25/13 13:36:00 [facility] Immunizations Ordered Immunization Name Filled Immunization Name Date Status Comments Source Tdap (Tetanus Toxoid, Reduced Diphtheria Toxoid And Acellular Pertussis, Absorbed) 2018-01-14 00:00:00 Completed [facility] Influenza, Vaccine<FLUCELVAX>(Multi-Dose) 2018-01-14 00:00 :00 Completed [facility] Vital Signs Vital Name Observation Time Observation Value Comments Source Systolic blood pressure 2019-05-18 15:32:00 124 mm[Hg] [facility] Diastolic blood pressure 2019-05-18 15:32:00 80 mm[Hg] [facility] Heart rate 2019-05-18 15:32:00 73 /min [facility] Body temperature 2019-05-18 15:32:00 37.28 [facility]isa [facility] Respiratory rate 2019-05-18 15:32:00 18 /min Rishabh is [facility] Body height 2019-05-18 15:32:00 177.8 cm [facility] Body weight 2019-05-18 15:32:00 63.957 kg [facility] BMI 2019-05-18 15:32:00 20.23 kg/m2 [facility] Systolic (mm Hg) 2018-01-02 03:34:00 [facility] [place] Diastolic (mm Hg) 2018-01-02 03:34:00 [facility] [place] Temperature Oral (F) 2018-01-02 03:34:00 97.8 F [facility] Respitory Rate 2018-01-02 03:34:00 [facility] [place] Respitory Rate 2018-01-02 03:13:00 [facility] [place] Systolic (mm Hg) 2018-01-02 03:13:00 Win [facility] Diastolic (mm Hg) 2018-01-02 03:13:00 [facility] Temperature Oral (F) 2018-01-02 02:22:00 98.1 F [facility] Respitory Rate 2018-01-02 02:22:00 [facility] Systolic (mm Hg) 2018-01-02 02:22:00 Win [facility] Diastolic (mm Hg) 2018-01-02 02:22:00 [facility] Temperature Oral (F) 2018-01-02 00:30:00 98.1 F [facility] Heart Rate 2018-01-01 20:12:00 [facility] [place] Height 2018-01-01 20:12:00 177.8 cm [facility] [place] Weight 2018-01-01 20:12:00 [facility] [place] BMI Calculated 2018-01-01 20:12:00 [facility] [place] Systolic (mm Hg) 2014-12-08 13:38:00 Win [facility] Diastolic (mm Hg) 2014-12-08 13:38:00 [facility] Temperature Oral (F) 2014-12-08 13:38:00 98.3 F [facility] [place] Heart Rate 2014-12-08 13:38:00 [facility] Respitory Rate 2014-12-08 13:38:00 [facility] [place] Systolic (mm Hg) 2014-12-08 13:00:00 [facility] [place] Diastolic (mm Hg) 2014-12-08 13:00:00 [facility] [place] Weight 2014-12-08 13:00:00 [facility] Respitory Rate 2014-12-08 13:00:00 [facility] [place] Heart Rate 2014-12-08 13:00:00 [facility] [place] Height 2014-12-08 13:00:00 175.26 cm [facility] [place] BMI Calculated 2014-12-08 13:00:00 [facility] Temperature Oral (F) 2014-12-08 13:00:00 98.6 F [facility] [place] Systolic (mm Hg) 2013-12-25 20:01:00 Win rial [address] Respitory Rate 2013-12-25 20:01:00 [facility] Diastolic (mm Hg) 2013-12-25 20:01:00 [facility] [place] Temperature Oral (F) 2013-12-25 20:01:00 98.3 F [facility] [place] Heart Rate 2013-12-25 20:01:00 [facility] [place] BMI Calculated 2013-12-25 18:15:00 [facility] [place] Height 2013-12-25 18:15:00 175.26 cm [facility] [place] Weight 2013-12-25 18:15:00 [facility] [place] Temperature Oral (F) 2013-12-25 18:15:00 98.3 F [facility] [place] Heart Rate 2013-12-25 18:15:00 [facility] Respitory Rate 2013-12-25 18:15:00 [facility] [place] Systolic (mm Hg) 2013-12-25 18:15:00 Win Guzmán Diastolic (mm Hg) 2013-12-25 18:15:00 Mem judy Guzmán Procedures Procedure Date / Time Performed Performing Clinician Sourc e XRAY FOOT 3 VIEWS MIN 2019-11-01 11:46:43 ArminMarquis pete Lito [facility] FECAL OCCULT BLOOD 2018-12-06 16:47:00 Marquis Dowell Lito [employer] XRAY NECK SOFT TISSUE 2018-11-24 16:28:52 Bharatangel luisMarquis townsend Lito H [facility] [employer] XRAY SHOULDER 2 VIEWS MIN 2018-11-24 16:28:52 Bharatangel luisSunny townsendu [facility] XRAY HAND 2 VIEWS 2018-11-24 16:28:52 Marquis Dowell [employer] [facility] CBC/DIFF 2018-11-24 16:10:00 Sunny Dowellu Lito [facility] CBC 2018-11-24 16:10:00 Sunny Dowellnatalia Morse [facility] SED RATE 2018-11-24 16:10:00 Sunny Dowellnatalia Morse [facility] VIVEK 2018-11-24 16:10:00 Sunny Dowellu [facility] RA FACTOR 2018-11-24 16:10:00 Bharatangel luisSunny townsendnatalia Morse [facility] CCP IGG ABS 2018-11-24 16:10:00 [facility] HGB FRACTIONATION 2018-11-24 16:10:00 [facility] CenterFieldSolutionsMarquis pete [facility] Encounters Start Date/Time End Date/Time Encounter Type [facility] Care Department Encounter ID Source 2018-09-02 00:00:00 2018-09-02 00:00:00 Outpatient [facility] [id number] [facility] 2018-06-30 00:00:00 2018-06-30 00:00:00 Outpatient [facility] [id number] [facility] 2018-02-11 00:00:00 2018-02-11 00:00:00 Outpatient [facility] [id number] [facility] 2018-02-08 00:00:00 2018-02-08 00:00:00 Outpatient [facility] [id number] [facility] 2018-01-27 00:00:00 2018-01-27 00:00:00 Outpatient [facility] [id number] [facility] 2018-01-25 16:04:00 2018-01-25 16:04:00 Outpatient [facility] [id number] [facility] 2018-01-21 00:00:00 2018-01-21 00:00:00 Outpatient [facility] [id number] [facility] 2018-01-14 10:22:33 2018-01-14 10:22:33 Outpatient [facility] [id number] [facility] 2018-01-14 09:34:33 2018-01-14 09:34:33 Outpatient [facility] [id number] [facility] 2018-01-01 15:07:00 2018-01-01 22:56:00 Outpatient Alice Tidwell SE [id number] 2017-12-30 00:00:00 2017-12-30 00:00:00 Outpatient [facility] [id number] [facility] 2017-12-03 00:00:00 2017-12-03 00:00:00 Outpatient [facility] [id number] [facility] 2017-11-11 11:07:19 2017-11-11 11:07:19 Outpatient [facility] [id number] [facility] 2017-11-04 00:00:00 2017-11-04 00:00:00 Outpatient [facility] [id number] [facility] 2017-11-03 08:11:22 2017-11-03 08:11:22 Outpatient [facility] [id number] [facility] 2017-08-27 08:19:31 2017-08-27 08:19:31 Outpatient [facility] [id number] [facility] 2017-08-27 08:18:28 2017-08-27 08:18:28 Outpatient [facility] [id number] [facility] 2016-10-14 00:00:00 2016-10-14 00:00:00 Outpatient [facility] [id number] [facility] 2014-12-08 07:57:00 2014-12-08 08:50:00 Outpatient Aleta Mcneill [facility] [id number] 2013-12-25 13:02:00 2013-12-25 16:30:00 Outpatient Rome Chatman [id number] Results Test Description Test Time Test Comments Results Result Comments Source URINALYSIS COMPLETE 2019-11-10 13:16:00 Test Item UA COLOR (test code = COLU) COLORLESS YELLOW A UA APPEARANCE (test code = APPU) CLEAR CLEAR UA GLUCOSE DIPSTICK (test code = DGLUU) NEGATIVE mg/dL NEGATIVE UA BILIRUBIN DIPSTICK (test code = BILU) NEGATIVE mg/dL NEGATIVE UA KETONE DIPSTICK (test code = KETU) NEGATIVE mg/dL NEGATIVE UA SPECIFIC GRAVITY (test code = SGU) 1.003 1.001-1.035 UA BLOOD DIPSTICK (test code = SNEHAL) Negative mg/dL NEGATIVE UA PH DIPSTICK (test code = CATRACHITA) 6.0 5.0-8.0 UA PROTEIN DIPSTICK (test code = PROU) NEGATIVE mg/dL NEGATIVE UA UROBILINIOGEN DIPSTICK (test code = URO) Normal mg/dL NEGATIVE UA NITRITE DIPSTICK (test code = ABIGAIL) NEGATIVE NEGATIVE UA LEUKOCYTE ESTERASE W REFLEX (test code = LEUUR) NEGATIVE Elias/uL NEGATIVE UA WBC (test code = WBCU) 0-5 per HPF 0-5 UA RBC (test code = RBCU) 0-2 #/HPF 0-5 UA EPITHELIAL CELLS (test code = EPIU) None seen per HPF FEW UA BACTERIA (test code = BACU) NONE SEEN #/HPF NONE Urine Source? Clean CatchDRUGS OF ABUSE SCREEN [id number] 13:16:00* Test Item Value Reference Range Interpretation Comments URN COCAINE (test code = COCAURN) NEGATIVE <300 ng/mL URN CANNABINOIDS (test code = CANNABURN) POSITIVE <50 ng/mL A This test provides only a preliminary test result. A morespecific alternate chemical method must be used in order toobtain a confirmed analytical result. Gas chromatography/mass spectrometry (GC/MS) is thepreferred confirmatory method. Other chemical confirmationmethods are available. Clinical consideration and professional judgment should be applied to any drug of abusetest result, particularly when preliminary positive resultsare used.Unconfirmed screening results must not be used fornon-medical purposes (e.g., employment testing, legaltesting). URN AMPHETAMINE (test code = AMPHETURN) NEGATIVE <1000 ng/mL URN BARBITURATE (test code = BARBITURN) NEGATIVE <200 ng/mL URN BENZODIAZEPINE (test code = BENZOURN) POSITIVE <200 ng/mL A This test provides only a preliminary test result. A morespecific alternate chemical method must be used in order toobtain a confirmed analytical result. Gas chromatography/mass spectrometry (GC/MS) is thepreferred confirmatory method. Other chemical confirmationmethods are available. Clinical consideration and professional judgment should be applied to any drug of abusetest result, particularly when preliminary positive resultsare used.Unconfirmed screening results must not be used fornon-medical purposes (e.g., employment testing, legaltesting). URN OPIATES (test code = OPIATURN) NEGATIVE <300 ng/mL URN PHENCYCLIDINE (PCP) (test code = PHENCURN) NEGATIVE <25 ng/ mL URN METHADONE (test code = METHAURN) NEGATIVE <300 ng/mL Urine Source? Clean CatchBASIC METABOLIC [id number] 13:15:00* Test Item Value Reference Range Interpretation Comments SODIUM (test code = NA) 139 mmol/L 136-145 N POTASSIUM (test code = K) 3.9 mmol/L 3.5-5.1 N CHLORIDE (test code = CL) 109.0 mmol/L 98-107 H CARBON DIOXIDE (test code = CO2) 25.0 mmol/L 21-32 N ANION GAP (test code = GAP) 8.9 10-20 L GLUCOSE (test code = GLU) 88 mg/dL 74-106 N BLOOD UREA NITROGEN (test code = BUN) 6 mg/dL 7-18 L GLOMERULAR FILTRATION RATE (test code = GFR) > 60 mL/min >=60 Estimated GFR by using Modified MDRD formula.Chronic kidney disease is defined as either kidney damageor GFR <60 mL/min/1.73 m2 for >3 months. CREATININE (test code = CREAT) 0.80 mg/dL 0.7-1.3 N BUN/CREATININE RATIO (test code = BUN/CREA) 7.8 10-20 L CALCIUM (test code = CA) 8.5 mg/dL 8.5-10.1 N HEPATIC FUNCTION [id number] 13:15:00* Test Item Value Reference Range Interpretation Comments TOTAL PROTEIN (test code = PROT) 7.0 gram/dL 6.4-8.2 N ALBUMIN (test code = ALB) 3.2 g/dL 3.4-5.0 L GLOBULIN (test code = GLOB) 3.8 gram/dL 2.7-4.2 N ALBUMIN/GLOBULIN RATIO (test code = A/G) 0.8 0.75-1.50 N BILIRUBIN TOTAL (test code = BILT) 0.20 mg/dL 0.0-1.0 N BILIRUBIN DIRECT (test code = BILD) 0.10 mg/dL 0.0-0.20 N SGOT/AST (test code = AST) 13 IUnit/L 15-37 L SGPT/ALT (test code = ALT) 17 IUnit/L 12-78 N ALKALINE PHOSPHATASE TOTAL (test code = ALKP) 75 IUnit/L 45-117 N Note change in reference range due to change in reagent. [id number] 13:15:00* Test Item Value Reference Range Interpretation Comments ALCOHOL (test code = ALC) 95 mg/dL 0.0-3.0 H -- INTERPRETIVE DATA NOTE: POSITIVE SCREENING RESULTS SHOULD BE CONSIDERED PRESUMPTIVE.WHEN COLLECTED FOR MEDICAL PURPOSES ONLY. SPECIMEN WILL NOTBE COLLECTED BY CHAIN OF CUSTODY.IF A CONFIRMATION OF POSITIVE RESULTS IS DESIRED, ACONFIRMATION TEST MUST BE REQUESTED BY THE PHYSICIAN AT ANADDITIONAL CHARGE TO THE PATIENT. BASIC METABOLIC [id number] 12:57:00* Test Item Value Reference Range Interpretation Comments SODIUM (test code = NA) 139 mmol/L 136-145 N POTASSIUM (test code = K) 3.9 mmol/L 3.5-5.1 N CHLORIDE (test code = CL) 109.0 mmol/L 98-107 H CARBON DIOXIDE (test code = CO2) mmol/L 21-32 ANION GAP (test code = GAP) 10-20 GLUCOSE (test code = GLU) mg/dL 74-106 BLOOD UREA NITROGEN (test code = BUN) mg/dL 7-18 GLOMERULAR FILTRATION RATE (test code = GFR) mL/min >=60 CREATININE (test code = CREAT) mg/dL 0.7-1.3 BUN/CREATININE RATIO (test code = BUN/CREA) 10-20 CALCIUM (test code = CA) mg/dL 8.5-10.1 HEPATIC FUNCTION [id number] 12:57:00* Test Item Value Reference Range Interpretation Comments TOTAL PROTEIN (test code = PROT) gram/dL 6.4-8.2 ALBUMIN (test code = ALB) g/dL 3.4-5.0 GLOBULIN (test code = GLOB) gram/dL 2.7-4.2 ALBUMIN/GLOBULIN RATIO (test code = A/G) 0.75-1.50 BILIRUBIN TOTAL (test code = BILT) mg/dL 0.0-1.0 BILIRUBIN DIRECT (test code = BILD) mg/dL 0.0-0.20 SGOT/AST (test code = AST) IUnit/L 15-37 SGPT/ALT (test code = ALT) IUnit/L 12-78 ALKALINE PHOSPHATASE TOTAL (test code = ALKP) IUnit/L 45-117 [id number] 12:57:00* Test Item Value Reference Range Interpretation Comments ALCOHOL (test code = ALC) mg/dL 0-3 URINALYSIS [id number] 12:47:00* Test Item Value Reference Range Interpretation Comments UA COLOR (test code = COLU) COLORLESS YELLOW A UA APPEARANCE (test code = APPU) CLEAR CLEAR UA GLUCOSE DIPSTICK (test code = DGLUU) NEGATIVE mg/dL NEGATIVE UA BILIRUBIN DIPSTICK (test code = BILU) NEGATIVE mg/dL NEGATIVE UA KETONE DIPSTICK (test code = KETU) NEGATIVE mg/dL NEGATIVE UA SPECIFIC GRAVITY (test code = SGU) 1.003 1.001-1.035 UA BLOOD DIPSTICK (test code = SNEHAL) Negative mg/dL NEGATIVE UA PH DIPSTICK (test code = CATRACHITA) 6.0 5.0-8.0 UA PROTEIN DIPSTICK (test code = PROU) NEGATIVE mg/dL NEGATIVE UA UROBILINIOGEN DIPSTICK (test code = URO) Normal mg/dL NEGATIVE UA NITRITE DIPSTICK (test code = ABIGAIL) NEGATIVE NEGATIVE UA LEUKOCYTE ESTERASE W REFLEX (test code = LEUUR) NEGATIVE Elias/uL NEGATIVE UA WBC (test code = WBCU) 0-5 per HPF 0-5 UA RBC (test code = RBCU) 0-2 #/HPF 0-5 UA EPITHELIAL CELLS (test code = EPIU) None seen per HPF FEW UA BACTERIA (test code = BACU) NONE SEEN #/HPF NONE Urine Source? Clean CatchDRUGS OF ABUSE SCREEN [id number] 12:47:00* Test Item Value Reference Range Interpretation Comments URN COCAINE (test code = COCAURN) <300 ng/mL URN CANNABINOIDS (test code = CANNABURN) <50 ng/mL URN AMPHETAMINE (test code = AMPHETURN) <1000 ng/mL URN BARBITURATE (test code = BARBITURN) <200 ng/mL URN BENZODIAZEPINE (test code = BENZOURN) <200 ng/mL URN OPIATES (test code = OPIATURN) <300 ng/mL URN PHENCYCLIDINE (PCP) (test code = PHENCURN) <25 ng/ mL URN METHADONE (test code = METHAURN) <300 ng/mL Urine Source? Clean CatchCBC W/O [id number] 12:42:00* Test Item Value Reference Range Interpretation Comments WHITE BLOOD CELL (test code = WBC) 7.4 K/mm3 4.5-12.5 N RED BLOOD CELL (test code = RBC) 4.00 mill/mm3 4.0-5.8 N HEMOGLOBIN (test code = HGB) 12.1 gram/dL 13.0-17.5 L HEMATOCRIT (test code = HCT) 36.3 % 42.0-52.0 L MEAN CELL VOLUME (test code = MCV) 90.8 fL 80-98 N MEAN CELL HGB (test code = MCH) 30.3 picogram 27.0-33.0 N MEAN CELL HGB CONCETRATION (test code = MCHC) 33.3 gram/dL 33.0-36. 0 N RED CELL DISTRIBUTION WIDTH (test code = RDW) 13.9 % 11.6-16. 2 N PLATELET COUNT (test code = PLT) 229 K/mm3 150-450 N MEAN PLATELET VOLUME (test code = MPV) 9.8 fL 6.7-11.0 N CBC W/O [id number] 12:41:00* Test Item Value Reference Range Interpretation Comments WHITE BLOOD CELL (test code = WBC) K/mm3 4.5-12.5 RED BLOOD CELL (test code = RBC) mill/mm3 4.0-5.8 HEMOGLOBIN (test code = HGB) gram/dL 13.0-17.5 HEMATOCRIT (test code = HCT) % 42.0-52.0 MEAN CELL VOLUME (test code = MCV) fL 80-98 MEAN CELL HGB (test code = MCH) picogram 27.0-33.0 MEAN CELL HGB CONCETRATION (test code = MCHC) gram/dL 33.0-36. 0 RED CELL DISTRIBUTION WIDTH (test code = RDW) % 11.6-16. 2 PLATELET COUNT (test code = PLT) 229 K/mm3 150-450 N MEAN PLATELET VOLUME (test code = MPV) fL 6.7-11.0 URINALYSIS [id number] 12:41:00* Test Item Value Reference Range Interpretation Comments UA COLOR (test code = COLU) COLORLESS YELLOW A UA APPEARANCE (test code = APPU) CLEAR CLEAR UA GLUCOSE DIPSTICK (test code = DGLUU) NEGATIVE mg/dL NEGATIVE UA BILIRUBIN DIPSTICK (test code = BILU) NEGATIVE mg/dL NEGATIVE UA KETONE DIPSTICK (test code = KETU) NEGATIVE mg/dL NEGATIVE UA SPECIFIC GRAVITY (test code = SGU) 1.003 1.001-1.035 UA BLOOD DIPSTICK (test code = SNEHAL) Negative mg/dL NEGATIVE UA PH DIPSTICK (test code = CATRACHITA) 6.0 5.0-8.0 UA PROTEIN DIPSTICK (test code = PROU) NEGATIVE mg/dL NEGATIVE UA UROBILINIOGEN DIPSTICK (test code = URO) Normal mg/dL NEGATIVE UA NITRITE DIPSTICK (test code = ABIGAIL) NEGATIVE NEGATIVE UA LEUKOCYTE ESTERASE W REFLEX (test code = LEUUR) NEGATIVE Elias/uL NEGATIVE UA WBC (test code = WBCU) per HPF 0-5 UA RBC (test code = RBCU) per HPF 0-5 UA EPITHELIAL CELLS (test code = EPIU) per HPF Few UA BACTERIA (test code = BACU) per HPF NONE Urine Source? Clean CatchDRUGS OF ABUSE SCREEN [id number] 12:41:00* Test Item Value Reference Range Interpretation Comments URN COCAINE (test code = COCAURN) <300 ng/mL URN CANNABINOIDS (test code = CANNABURN) <50 ng/mL URN AMPHETAMINE (test code = AMPHETURN) <1000 ng/mL URN BARBITURATE (test code = BARBITURN) <200 ng/mL URN BENZODIAZEPINE (test code = BENZOURN) <200 ng/mL URN OPIATES (test code = OPIATURN) <300 ng/mL URN PHENCYCLIDINE (PCP) (test code = PHENCURN) <25 ng/ mL URN METHADONE (test code = METHAURN) <300 ng/mL Urine Source? Clean CatchURINALYSIS [id number] 02:17:00* Test Item Value Reference Range Interpretation Comments UA COLOR (test code = COLU) Light-Yellow YELLOW UA APPEARANCE (test code = APPU) CLEAR CLEAR UA GLUCOSE DIPSTICK (test code = DGLUU) NEGATIVE mg/dL NEGATIVE UA BILIRUBIN DIPSTICK (test code = BILU) NEGATIVE mg/dL NEGATIVE UA KETONE DIPSTICK (test code = KETU) NEGATIVE mg/dL NEGATIVE UA SPECIFIC GRAVITY (test code = SGU) 1.011 1.001-1.035 UA BLOOD DIPSTICK (test code = SNEHAL) Negative mg/dL NEGATIVE UA PH DIPSTICK (test code = CATRACHITA) 6.0 5.0-8.0 UA PROTEIN DIPSTICK (test code = PROU) NEGATIVE mg/dL NEGATIVE UA UROBILINIOGEN DIPSTICK (test code = URO) Normal mg/dL NEGATIVE UA NITRITE DIPSTICK (test code = ABIGAIL) NEGATIVE NEGATIVE UA LEUKOCYTE ESTERASE W REFLEX (test code = LEUUR) NEGATIVE Elias/uL NEGATIVE UA WBC (test code = WBCU) 0-5 per HPF 0-5 UA RBC (test code = RBCU) 0-2 #/HPF 0-5 UA EPITHELIAL CELLS (test code = EPIU) None seen per HPF FEW UA BACTERIA (test code = BACU) NONE SEEN #/HPF NONE UA MUCUS (test code = MUCU) FEW #/LPF FEW Urine Source? Clean CatchXRAY FOOT 3 VIEWS [id number] 13:07:54IMPRESSION: No acute osseous lesion. Signed By: Juan Adams MD, 11/01/2019 1:07 PM Interface, [facility]/[employer] In - 11/01/2019 1:13 PM CDTLeft foot 3 views HISTORY: left foot pain COMPARISON: None DISCUSSION:No displaced fracture or malalignment.The joint spaces are well maintained without definite osseous erosion.The visualized soft tissues appear unremarkable.IMPRESSIONIMPRESSION: No acute osseous lesion.Signed By: Juan Adams MD, 11/01/2019 1:07 [facility] [id number] 04:32:00* Test Item Value Reference Range Interpretation Comments UA COLOR (test code = COLU) COLORLESS YELLOW A UA APPEARANCE (test code = APPU) CLEAR CLEAR UA GLUCOSE DIPSTICK (test code = DGLUU) NEGATIVE mg/dL NEGATIVE UA BILIRUBIN DIPSTICK (test code = BILU) NEGATIVE mg/dL NEGATIVE UA KETONE DIPSTICK (test code = KETU) NEGATIVE mg/dL NEGATIVE UA SPECIFIC GRAVITY (test code = SGU) 1.004 1.001-1.035 UA BLOOD DIPSTICK (test code = SNEHAL) Negative mg/dL NEGATIVE UA PH DIPSTICK (test code = CATRACHITA) 5.0 5.0-8.0 UA PROTEIN DIPSTICK (test code = PROU) NEGATIVE mg/dL NEGATIVE UA UROBILINIOGEN DIPSTICK (test code = URO) Normal mg/dL NEGATIVE UA NITRITE DIPSTICK (test code = ABIGAIL) NEGATIVE NEGATIVE UA LEUKOCYTE ESTERASE W REFLEX (test code = LEUUR) NEGATIVE Elias/uL NEGATIVE UA WBC (test code = WBCU) 0-5 per HPF 0-5 UA RBC (test code = RBCU) 0-3 #/HPF 0-5 UA EPITHELIAL CELLS (test code = EPIU) None seen per HPF FEW UA BACTERIA (test code = BACU) NONE SEEN #/HPF NONE Urine Source? Clean CatchDRUGS OF ABUSE SCREEN [id number] 04:32:00* Test Item Value Reference Range Interpretation Comments URN COCAINE (test code = COCAURN) NEGATIVE <300 ng/mL URN CANNABINOIDS (test code = CANNABURN) POSITIVE <50 ng/mL A This test provides only a preliminary test result. A morespecific alternate chemical method must be used in order toobtain a confirmed analytical result. Gas chromatography/mass spectrometry (GC/MS) is thepreferred confirmatory method. Other chemical confirmationmethods are available. Clinical consideration and professional judgment should be applied to any drug of abusetest result, particularly when preliminary positive resultsare used.Unconfirmed screening results must not be used fornon-medical purposes (e.g., employment testing, legaltesting). URN AMPHETAMINE (test code = AMPHETURN) NEGATIVE <1000 ng/mL URN BARBITURATE (test code = BARBITURN) NEGATIVE <200 ng/mL URN BENZODIAZEPINE (test code = BENZOURN) POSITIVE <200 ng/mL A This test provides only a preliminary test result. A morespecific alternate chemical method must be used in order toobtain a confirmed analytical result. Gas chromatography/mass spectrometry (GC/MS) is thepreferred confirmatory method. Other chemical confirmationmethods are available. Clinical consideration and professional judgment should be applied to any drug of abusetest result, particularly when preliminary positive resultsare used.Unconfirmed screening results must not be used fornon-medical purposes (e.g., employment testing, legaltesting). URN OPIATES (test code = OPIATURN) NEGATIVE <300 ng/mL URN PHENCYCLIDINE (PCP) (test code = PHENCURN) NEGATIVE <25 ng/ mL URN METHADONE (test code = METHAURN) NEGATIVE <300 ng/mL Urine Source? Clean CatchCBC W/O [id number] 04:00:00* Test Item Value Reference Range Interpretation Comments WHITE BLOOD CELL (test code = WBC) 11.7 K/mm3 4.5-12.5 N RED BLOOD CELL (test code = RBC) 4.34 mill/mm3 4.0-5.8 N HEMOGLOBIN (test code = HGB) 13.2 gram/dL 13.0-17.5 N HEMATOCRIT (test code = HCT) 39.2 % 42.0-52.0 L MEAN CELL VOLUME (test code = MCV) 90.3 fL 80-98 N MEAN CELL HGB (test code = MCH) 30.4 picogram 27.0-33.0 N MEAN CELL HGB CONCETRATION (test code = MCHC) 33.7 gram/dL 33.0-36. 0 N RED CELL DISTRIBUTION WIDTH (test code = RDW) 13.1 % 11.6-16. 2 N PLATELET COUNT (test code = PLT) 219 K/mm3 150-450 N MEAN PLATELET VOLUME (test code = MPV) 10.4 fL 6.7-11.0 N BASIC METABOLIC [id number] 03:38:00* Test Item Value Reference Range Interpretation Comments SODIUM (test code = NA) 142 mmol/L 136-145 N POTASSIUM (test code = K) 4.1 mmol/L 3.5-5.1 N CHLORIDE (test code = CL) 108.0 mmol/L 98-107 H CARBON DIOXIDE (test code = CO2) 27.0 mmol/L 21-32 N ANION GAP (test code = GAP) 11.1 10-20 N GLUCOSE (test code = GLU) 85 mg/dL 74-106 N BLOOD UREA NITROGEN (test code = BUN) 6 mg/dL 7-18 L GLOMERULAR FILTRATION RATE (test code = GFR) > 60 mL/min >=60 Estimated GFR by using Modified MDRD formula.Chronic kidney disease is defined as either kidney damageor GFR <60 mL/min/1.73 m2 for >3 months. CREATININE (test code = CREAT) 0.80 mg/dL 0.7-1.3 N BUN/CREATININE RATIO (test code = BUN/CREA) 7.7 10-20 L CALCIUM (test code = CA) 9.2 mg/dL 8.5-10.1 N HEPATIC FUNCTION [id number] 03:38:00* Test Item Value Reference Range Interpretation Comments TOTAL PROTEIN (test code = PROT) 7.4 gram/dL 6.4-8.2 N ALBUMIN (test code = ALB) 3.8 g/dL 3.4-5.0 N GLOBULIN (test code = GLOB) 3.6 gram/dL 2.7-4.2 N ALBUMIN/GLOBULIN RATIO (test code = A/G) 1.1 0.75-1.50 N BILIRUBIN TOTAL (test code = BILT) 0.20 mg/dL 0.0-1.0 N BILIRUBIN DIRECT (test code = BILD) 0.09 mg/dL 0.0-0.20 N SGOT/AST (test code = AST) 13 IUnit/L 15-37 L SGPT/ALT (test code = ALT) 16 IUnit/L 12-78 N ALKALINE PHOSPHATASE TOTAL (test code = ALKP) 76 IUnit/L 45-117 N Note change in reference range due to change in reagent. [id number] 03:38:00* Test Item Value Reference Range Interpretation Comments TROPONIN-I (test code = TROPI) <0.015 ng/mL 0-0.045 N [id number] 03:38:00* Test Item Value Reference Range Interpretation Comments ACETAMINOPHEN (test code = ACET) < 10 mcg/mL 10-30 L A RANGE OF 10-30 mcg/mL IS A THERAPEUTIC RANGE. TOXIC CONCENTRATIONS: >150 mcg/mL AT 4 HOURS AFTER INGESTION >= 50 mcg/mL AT 12 HOURS AFTER INGESTION [id number] 03:38:00* Test Item Value Reference Range Interpretation Comments SALICYLATE (test code = ANGELINA) 4.6 mg/dL 2.8-20.0 N [id number] 03:38:00* Test Item Value Reference Range Interpretation Comments ALCOHOL (test code = ALC) 60 mg/dL 0.0-3.0 H -- INTERPRETIVE DATA NOTE: POSITIVE SCREENING RESULTS SHOULD BE CONSIDERED PRESUMPTIVE.WHEN COLLECTED FOR MEDICAL PURPOSES ONLY. SPECIMEN WILL NOTBE COLLECTED BY CHAIN OF CUSTODY.IF A CONFIRMATION OF POSITIVE RESULTS IS DESIRED, ACONFIRMATION TEST MUST BE REQUESTED BY THE PHYSICIAN AT ANADDITIONAL CHARGE TO THE PATIENT. URINALYSIS [id number] 03:33:00* Test Item Value Reference Range Interpretation Comments UA COLOR (test code = COLU) COLORLESS YELLOW A UA APPEARANCE (test code = APPU) CLEAR CLEAR UA GLUCOSE DIPSTICK (test code = DGLUU) NEGATIVE mg/dL NEGATIVE UA BILIRUBIN DIPSTICK (test code = BILU) NEGATIVE mg/dL NEGATIVE UA KETONE DIPSTICK (test code = KETU) NEGATIVE mg/dL NEGATIVE UA SPECIFIC GRAVITY (test code = SGU) 1.004 1.001-1.035 UA BLOOD DIPSTICK (test code = SNEHAL) Negative mg/dL NEGATIVE UA PH DIPSTICK (test code = CATRACHITA) 5.0 5.0-8.0 UA PROTEIN DIPSTICK (test code = PROU) NEGATIVE mg/dL NEGATIVE UA UROBILINIOGEN DIPSTICK (test code = URO) Normal mg/dL NEGATIVE UA NITRITE DIPSTICK (test code = ABIGAIL) NEGATIVE NEGATIVE UA LEUKOCYTE ESTERASE W REFLEX (test code = LEUUR) NEGATIVE Elias/uL NEGATIVE UA WBC (test code = WBCU) 0-5 per HPF 0-5 UA RBC (test code = RBCU) 0-3 #/HPF 0-5 UA EPITHELIAL CELLS (test code = EPIU) None seen per HPF FEW UA BACTERIA (test code = BACU) NONE SEEN #/HPF NONE Urine Source? Clean CatchDRUGS OF ABUSE SCREEN [id number] 03:33:00* Test Item Value Reference Range Interpretation Comments URN COCAINE (test code = COCAURN) <300 ng/mL URN CANNABINOIDS (test code = CANNABURN) <50 ng/mL URN AMPHETAMINE (test code = AMPHETURN) <1000 ng/mL URN BARBITURATE (test code = BARBITURN) <200 ng/mL URN BENZODIAZEPINE (test code = BENZOURN) <200 ng/mL URN OPIATES (test code = OPIATURN) <300 ng/mL URN PHENCYCLIDINE (PCP) (test code = PHENCURN) <25 ng/ mL URN METHADONE (test code = METHAURN) <300 ng/mL Urine Source? Clean CatchBASIC METABOLIC [id number] 03:24:00* Test Item Value Reference Range Interpretation Comments SODIUM (test code = NA) 142 mmol/L 136-145 N POTASSIUM (test code = K) 4.1 mmol/L 3.5-5.1 N CHLORIDE (test code = CL) 108.0 mmol/L 98-107 H CARBON DIOXIDE (test code = CO2) mmol/L 21-32 ANION GAP (test code = GAP) 10-20 GLUCOSE (test code = GLU) mg/dL 74-106 BLOOD UREA NITROGEN (test code = BUN) mg/dL 7-18 GLOMERULAR FILTRATION RATE (test code = GFR) mL/min >=60 CREATININE (test code = CREAT) mg/dL 0.7-1.3 BUN/CREATININE RATIO (test code = BUN/CREA) 10-20 CALCIUM (test code = CA) mg/dL 8.5-10.1 HEPATIC FUNCTION [id number] 03:24:00* Test Item Value Reference Range Interpretation Comments TOTAL PROTEIN (test code = PROT) gram/dL 6.4-8.2 ALBUMIN (test code = ALB) g/dL 3.4-5.0 GLOBULIN (test code = GLOB) gram/dL 2.7-4.2 ALBUMIN/GLOBULIN RATIO (test code = A/G) 0.75-1.50 BILIRUBIN TOTAL (test code = BILT) mg/dL 0.0-1.0 BILIRUBIN DIRECT (test code = BILD) mg/dL 0.0-0.20 SGOT/AST (test code = AST) IUnit/L 15-37 SGPT/ALT (test code = ALT) IUnit/L 12-78 ALKALINE PHOSPHATASE TOTAL (test code = ALKP) IUnit/L 45-117 [id number] 03:24:00* Test Item Value Reference Range Interpretation Comments TROPONIN-I (test code = TROPI) ng/mL 0-0.045 [id number] 03:24:00* Test Item Value Reference Range Interpretation Comments ACETAMINOPHEN (test code = ACET) mcg/mL 10-30 [id number] 03:24:00* Test Item Value Reference Range Interpretation Comments SALICYLATE (test code = ANGELINA) mg/dL 2.8-20.0 [id number] 03:24:00* Test Item Value Reference Range Interpretation Comments ALCOHOL (test code = ALC) mg/dL 0-3 URINALYSIS [id number] 03:08:00* Test Item Value Reference Range Interpretation Comments UA COLOR (test code = COLU) YELLOW UA APPEARANCE (test code = APPU) CLEAR CLEAR UA GLUCOSE DIPSTICK (test code = DGLUU) NEGATIVE mg/dL NEGATIVE UA BILIRUBIN DIPSTICK (test code = BILU) NEGATIVE mg/dL NEGATIVE UA KETONE DIPSTICK (test code = KETU) NEGATIVE mg/dL NEGATIVE UA SPECIFIC GRAVITY (test code = SGU) 1.004 1.001-1.035 UA BLOOD DIPSTICK (test code = SNEHAL) Negative mg/dL NEGATIVE UA PH DIPSTICK (test code = CATRACHITA) 5.0 5.0-8.0 UA PROTEIN DIPSTICK (test code = PROU) NEGATIVE mg/dL NEGATIVE UA UROBILINIOGEN DIPSTICK (test code = URO) Normal mg/dL NEGATIVE UA NITRITE DIPSTICK (test code = ABIGAIL) NEGATIVE NEGATIVE UA LEUKOCYTE ESTERASE W REFLEX (test code = LEUUR) NEGATIVE Elias/uL NEGATIVE UA WBC (test code = WBCU) per HPF 0-5 UA RBC (test code = RBCU) per HPF 0-5 UA EPITHELIAL CELLS (test code = EPIU) per HPF Few UA BACTERIA (test code = BACU) per HPF NONE Urine Source? Clean CatchDRUGS OF ABUSE SCREEN [id number] 03:08:00* Test Item Value Reference Range Interpretation Comments URN COCAINE (test code = COCAURN) <300 ng/mL URN CANNABINOIDS (test code = CANNABURN) <50 ng/mL URN AMPHETAMINE (test code = AMPHETURN) <1000 ng/mL URN BARBITURATE (test code = BARBITURN) <200 ng/mL URN BENZODIAZEPINE (test code = BENZOURN) <200 ng/mL URN OPIATES (test code = OPIATURN) <300 ng/mL URN PHENCYCLIDINE (PCP) (test code = PHENCURN) <25 ng/ mL URN METHADONE (test code = METHAURN) <300 ng/mL Urine Source? Clean Catch- XR CHEST 1 [id number] 02:28:00 FAX: Jose Alberto Ruiz MD [phone] [place]: St: REG Name: [facility]IAZ [facility] : [birth year] Age/S: 34/M [address] [facility] Unit #: [id number] Loc: [place] [address] Phys: Jose Alberto Ruiz MD Acct: [id number] Dis Date: Status: REG ER PHONE #: [phone] Exam Date: 10/27/2019 0214 FAX #: [phone] Reason: cough EXAMS: CPT CODE: [id number] XR CHEST 1 V [id number] EXAM: - XR CHEST 1 V COMPARISON: 04/26/2018 LOCATION: [facility] HISTORY: 34 ye ars-old Male with cough FINDINGS: The cardiomediasti nal silhouette is within normal limits. Hazy left lower lobe opacity. No large pneumothorax or pleural effusion. Osseous structures and soft tiss ues demonstrate no acute findings. The visualized upper abdomen is unrema rkable. IMPRESSION: Hazy left lower lobe opaci ty may represent atelectasis or infiltrate. Electronically Sig addy by Anders Tidwell M.D. on 10/27/2019 at 0 228 Reported and signed by: Anders Tidwell M.D. CC: Jose Alberto Ruiz MD Technologist: NILS MARCUS RT Trnscrd Date/Time/By: 10/27/2019 (0228) : By: [email or web address] Orig Print D/T: S: 10/27/2019 (023) PAGE 1 Signed Report - CT HEAD/BRAIN W/O [id number] 20:07:00 Name: MADAN SOLORIO [facility] : 1985 Age/S: 33 / M [address] [facility] Unit #: [id number] Loc: [place] [address] Phys: Kaylie Madison MD Acct: [id number] Dis Date: Status: DEP ER PHONE #: [phone] Exam Date: 03/01/20191936 FAX #: [phone] Reason: HEAD INJURY EXAMS: CPT CODE: [id number] CT HEAD/BRAIN W/O CONT [id number] EXAM: CT of the head; INFORMATION: Status post fall, head injury, headache; TECHNIQUE AND FINDINGS: CT dose reduction protocol; The ventricles are symmetric and of normal diameter; normal width of basilar cisterns and sulci; normal armas/white matter differentiation; no evidence of intra or extra-axial hemorrhage, mass lesion or midline shift. Bone windows show no abnormalities. No evidence of skull fracture. Imaged portions of the paranasal sinuses and mastoid air cells are well aerated. IMPRESSION: Normal CT scan of the head. Location code: [facility] at 2007 Reported and signed by: Bebo Peña M.D. CC: Kaylie Madison MD Technologist:Rosalva Randolph RT(R) CTDI: DLP: Trnscb Date/Time: 03/01/2019 (2006) [email or web address] Orig Print D/T: S: 03/01/2019 (2010) PAGE 1 Signed Report BASIC METABOLIC [id number] 19:36:00* Test Item Value Reference Range Interpretation Comments SODIUM (test code = NA) 149 mmol/L 136-145 H POTASSIUM (test code = K) 4.0 mmol/L 3.5-5.1 N CHLORIDE (test code = CL) 113.0 mmol/L 98-107 H CARBON DIOXIDE (test code = CO2) 29.0 mmol/L 21-32 N ANION GAP (test code = GAP) 11.0 10-20 N GLUCOSE (test code = GLU) 62 mg/dL 74-106 L BLOOD UREA NITROGEN (test code = BUN) 10 mg/dL 7-18 N GLOMERULAR FILTRATION RATE (test code = GFR) > 60 mL/min >=60 Estimated GFR by using Modified MDRD formula.Chronic kidney disease is defined as either kidney damageor GFR <60 mL/min/1.73 m2 for >3 months. CREATININE (test code = CREAT) 0.90 mg/dL 0.7-1.3 N BUN/CREATININE RATIO (test code = BUN/CREA) 10.8 10-20 N CALCIUM (test code = CA) 8.8 mg/dL 8.5-10.1 N HEPATIC FUNCTION [id number] 19:36:00* Test Item Value Reference Range Interpretation Comments TOTAL PROTEIN (test code = PROT) 8.1 gram/dL 6.4-8.2 N ALBUMIN (test code = ALB) 4.2 g/dL 3.4-5.0 N GLOBULIN (test code = GLOB) 3.9 gram/dL 2.7-4.2 N ALBUMIN/GLOBULIN RATIO (test code = A/G) 1.1 0.75-1.50 N BILIRUBIN TOTAL (test code = BILT) 0.20 mg/dL 0.0-1.0 N BILIRUBIN DIRECT (test code = BILD) 0.09 mg/dL 0.0-0.20 N SGOT/AST (test code = AST) 30 IUnit/L 15-37 N SGPT/ALT (test code = ALT) 33 IUnit/L 12-78 N ALKALINE PHOSPHATASE TOTAL (test code = ALKP) 91 IUnit/L 45-117 N Note change in reference range due to change in reagent. CREATINE KINASE (CK)2019-03-01 19:36:00* Test Item Value Reference Range Interpretation Comments CREATINE KINASE (CK) (test code = CK) 248 IUnit/L 26-208 H [id number] 19:36:00* Test Item Value Reference Range Interpretation Comments ACETAMINOPHEN (test code = ACET) < 10 mcg/mL 10-30 L A RANGE OF 10-30 mcg/mL IS A THERAPEUTIC RANGE. TOXIC CONCENTRATIONS: >150 mcg/mL AT 4 HOURS AFTER INGESTION >= 50 mcg/mL AT 12 HOURS AFTER INGESTION [id number] 19:36:00* Test Item Value Reference Range Interpretation Comments SALICYLATE (test code = ANGELINA) 2.6 mg/dL 2.8-20.0 L [id number] 19:36:00* Test Item Value Reference Range Interpretation Comments ALCOHOL (test code = ALC) 254 mg/dL 0.0-3.0 H -- INTERPRETIVE DATA NOTE: POSITIVE SCREENING RESULTS SHOULD BE CONSIDERED PRESUMPTIVE.WHEN COLLECTED FOR MEDICAL PURPOSES ONLY. SPECIMEN WILL NOTBE COLLECTED BY CHAIN OF CUSTODY.IF A CONFIRMATION OF POSITIVE RESULTS IS DESIRED, ACONFIRMATION TEST MUST BE REQUESTED BY THE PHYSICIAN AT ANADDITIONAL CHARGE TO THE PATIENT. BASIC METABOLIC [id number] 19:29:00* Test Item Value Reference Range Interpretation Comments SODIUM (test code = NA) 149 mmol/L 136-145 H POTASSIUM (test code = K) 4.0 mmol/L 3.5-5.1 N CHLORIDE (test code = CL) 113.0 mmol/L 98-107 H CARBON DIOXIDE (test code = CO2) mmol/L 21-32 ANION GAP (test code = GAP) 10-20 GLUCOSE (test code = GLU) mg/dL 74-106 BLOOD UREA NITROGEN (test code = BUN) mg/dL 7-18 GLOMERULAR FILTRATION RATE (test code = GFR) mL/min >=60 CREATININE (test code = CREAT) mg/dL 0.7-1.3 BUN/CREATININE RATIO (test code = BUN/CREA) 10-20 CALCIUM (test code = CA) mg/dL 8.5-10.1 HEPATIC FUNCTION [id number] 19:29:00* Test Item Value Reference Range Interpretation Comments TOTAL PROTEIN (test code = PROT) gram/dL 6.4-8.2 ALBUMIN (test code = ALB) g/dL 3.4-5.0 GLOBULIN (test code = GLOB) gram/dL 2.7-4.2 ALBUMIN/GLOBULIN RATIO (test code = A/G) 0.75-1.50 BILIRUBIN TOTAL (test code = BILT) mg/dL 0.0-1.0 BILIRUBIN DIRECT (test code = BILD) mg/dL 0.0-0.20 SGOT/AST (test code = AST) IUnit/L 15-37 SGPT/ALT (test code = ALT) IUnit/L 12-78 ALKALINE PHOSPHATASE TOTAL (test code = ALKP) IUnit/L 45-117 CREATINE KINASE (CK)2019-03-01 19:29:00* Test Item Value Reference Range Interpretation Comments CREATINE KINASE (CK) (test code = CK) IUnit/L 26-208 [id number] 19:29:00* Test Item Value Reference Range Interpretation Comments ACETAMINOPHEN (test code = ACET) mcg/mL 10-30 [id number] 19:29:00* Test Item Value Reference Range Interpretation Comments SALICYLATE (test code = ANGELINA) mg/dL 2.8-20.0 [id number] 19:29:00* Test Item Value Reference Range Interpretation Comments ALCOHOL (test code = ALC) mg/dL 0-3 CBC W/O [id number] 19:17:00* Test Item Value Reference Range Interpretation Comments WHITE BLOOD CELL (test code = WBC) 8.7 K/mm3 4.5-12.5 N RED BLOOD CELL (test code = RBC) 4.60 mill/mm3 4.0-5.8 N HEMOGLOBIN (test code = HGB) 14.0 gram/dL 13.0-17.5 N HEMATOCRIT (test code = HCT) 43.1 % 42.0-52.0 N MEAN CELL VOLUME (test code = MCV) 93.7 fL 80-98 N MEAN CELL HGB (test code = MCH) 30.4 picogram 27.0-33.0 N MEAN CELL HGB CONCETRATION (test code = MCHC) 32.5 gram/dL 33.0-36. 0 L RED CELL DISTRIBUTION WIDTH (test code = RDW) 13.0 % 11.6-16. 2 N PLATELET COUNT (test code = PLT) 327 K/mm3 150-450 N MEAN PLATELET VOLUME (test code = MPV) 9.6 fL 6.7-11.0 N URINALYSIS [id number] 22:50:00* Test Item Value Reference Range Interpretation Comments UA COLOR (test code = COLU) Light-Yellow YELLOW UA APPEARANCE (test code = APPU) CLEAR CLEAR UA GLUCOSE DIPSTICK (test code = DGLUU) NEGATIVE mg/dL NEGATIVE UA BILIRUBIN DIPSTICK (test code = BILU) NEGATIVE mg/dL NEGATIVE UA KETONE DIPSTICK (test code = KETU) TRACE mg/dL NEGATIVE A UA SPECIFIC GRAVITY (test code = SGU) 1.012 1.001-1.035 UA BLOOD DIPSTICK (test code = SNEHAL) Negative mg/dL NEGATIVE UA PH DIPSTICK (test code = CATRACHITA) 5.0 5.0-8.0 UA PROTEIN DIPSTICK (test code = PROU) NEGATIVE mg/dL NEGATIVE UA UROBILINIOGEN DIPSTICK (test code = URO) Normal mg/dL NEGATIVE UA NITRITE DIPSTICK (test code = ABIGAIL) NEGATIVE NEGATIVE UA LEUKOCYTE ESTERASE W REFLEX (test code = LEUUR) NEGATIVE Elias/uL NEGATIVE UA WBC (test code = WBCU) 0-5 per HPF 0-5 UA RBC (test code = RBCU) 0-2 #/HPF 0-5 UA EPITHELIAL CELLS (test code = EPIU) FEW per HPF FEW UA BACTERIA (test code = BACU) FEW #/HPF NONE A UA MUCUS (test code = MUCU) FEW #/LPF FEW Urine Source? Clean CatchDRUGS OF ABUSE SCREEN [id number] 22:50:00* Test Item Value Reference Range Interpretation Comments URN COCAINE (test code = COCAURN) NEGATIVE <300 ng/mL URN CANNABINOIDS (test code = CANNABURN) POSITIVE <50 ng/mL A This test provides only a preliminary test result. A morespecific alternate chemical method must be used in order toobtain a confirmed analytical result. Gas chromatography/mass spectrometry (GC/MS) is thepreferred confirmatory method. Other chemical confirmationmethods are available. Clinical consideration and professional judgment should be applied to any drug of abusetest result, particularly when preliminary positive resultsare used.Unconfirmed screening results must not be used fornon-medical purposes (e.g., employment testing, legaltesting). URN AMPHETAMINE (test code = AMPHETURN) NEGATIVE <1000 ng/mL URN BARBITURATE (test code = BARBITURN) NEGATIVE <200 ng/mL URN BENZODIAZEPINE (test code = BENZOURN) NEGATIVE <200 ng/mL URN OPIATES (test code = OPIATURN) NEGATIVE <300 ng/mL URN PHENCYCLIDINE (PCP) (test code = PHENCURN) NEGATIVE <25 ng/ mL URN METHADONE (test code = METHAURN) NEGATIVE <300 ng/mL Urine Source? Clean CatchURINALYSIS [id number] 22:42:00* Test Item Value Reference Range Interpretation Comments UA COLOR (test code = COLU) Light-Yellow YELLOW UA APPEARANCE (test code = APPU) CLEAR CLEAR UA GLUCOSE DIPSTICK (test code = DGLUU) NEGATIVE mg/dL NEGATIVE UA BILIRUBIN DIPSTICK (test code = BILU) NEGATIVE mg/dL NEGATIVE UA KETONE DIPSTICK (test code = KETU) TRACE mg/dL NEGATIVE A UA SPECIFIC GRAVITY (test code = SGU) 1.012 1.001-1.035 UA BLOOD DIPSTICK (test code = SNEHAL) Negative mg/dL NEGATIVE UA PH DIPSTICK (test code = CATRACHITA) 5.0 5.0-8.0 UA PROTEIN DIPSTICK (test code = PROU) NEGATIVE mg/dL NEGATIVE UA UROBILINIOGEN DIPSTICK (test code = URO) Normal mg/dL NEGATIVE UA NITRITE DIPSTICK (test code = ABIGAIL) NEGATIVE NEGATIVE UA LEUKOCYTE ESTERASE W REFLEX (test code = LEUUR) NEGATIVE Elias/uL NEGATIVE UA WBC (test code = WBCU) 0-5 per HPF 0-5 UA RBC (test code = RBCU) 0-2 #/HPF 0-5 UA EPITHELIAL CELLS (test code = EPIU) FEW per HPF FEW UA BACTERIA (test code = BACU) FEW #/HPF NONE A UA MUCUS (test code = MUCU) FEW #/LPF FEW Urine Source? Clean CatchDRUGS OF ABUSE SCREEN [id number] 22:42:00* Test Item Value Reference Range Interpretation Comments URN COCAINE (test code = COCAURN) <300 ng/mL URN CANNABINOIDS (test code = CANNABURN) <50 ng/mL URN AMPHETAMINE (test code = AMPHETURN) <1000 ng/mL URN BARBITURATE (test code = BARBITURN) <200 ng/mL URN BENZODIAZEPINE (test code = BENZOURN) <200 ng/mL URN OPIATES (test code = OPIATURN) <300 ng/mL URN PHENCYCLIDINE (PCP) (test code = PHENCURN) <25 ng/ mL URN METHADONE (test code = METHAURN) <300 ng/mL Urine Source? Clean CatchBASIC METABOLIC [id number] 22:31:00* Test Item Value Reference Range Interpretation Comments SODIUM (test code = NA) 146 mmol/L 136-145 H POTASSIUM (test code = K) 3.7 mmol/L 3.5-5.1 N CHLORIDE (test code = CL) 111.0 mmol/L 98-107 H CARBON DIOXIDE (test code = CO2) 25.0 mmol/L 21-32 N ANION GAP (test code = GAP) 13.7 10-20 N GLUCOSE (test code = GLU) 92 mg/dL 74-106 N BLOOD UREA NITROGEN (test code = BUN) 9 mg/dL 7-18 N GLOMERULAR FILTRATION RATE (test code = GFR) > 60 mL/min >=60 Estimated GFR by using Modified MDRD formula.Chronic kidney disease is defined as either kidney damageor GFR <60 mL/min/1.73 m2 for >3 months. CREATININE (test code = CREAT) 0.90 mg/dL 0.7-1.3 N BUN/CREATININE RATIO (test code = BUN/CREA) 10.2 10-20 N CALCIUM (test code = CA) 8.8 mg/dL 8.5-10.1 N HEPATIC FUNCTION [id number] 22:31:00* Test Item Value Reference Range Interpretation Comments TOTAL PROTEIN (test code = PROT) 8.2 gram/dL 6.4-8.2 N ALBUMIN (test code = ALB) 4.3 g/dL 3.4-5.0 N GLOBULIN (test code = GLOB) 3.9 gram/dL 2.7-4.2 N ALBUMIN/GLOBULIN RATIO (test code = A/G) 1.1 0.75-1.50 N BILIRUBIN TOTAL (test code = BILT) 0.20 mg/dL 0.0-1.0 N BILIRUBIN DIRECT (test code = BILD) 0.05 mg/dL 0.0-0.20 N SGOT/AST (test code = AST) 12 IUnit/L 15-37 L SGPT/ALT (test code = ALT) 21 IUnit/L 12-78 N ALKALINE PHOSPHATASE TOTAL (test code = ALKP) 80 IUnit/L 45-117 N Note change in reference range due to change in reagent. [id number] 22:31:00* Test Item Value Reference Range Interpretation Comments ALCOHOL (test code = ALC) 259 mg/dL 0.0-3.0 H -- INTERPRETIVE DATA NOTE: POSITIVE SCREENING RESULTS SHOULD BE CONSIDERED PRESUMPTIVE.WHEN COLLECTED FOR MEDICAL PURPOSES ONLY. SPECIMEN WILL NOTBE COLLECTED BY CHAIN OF CUSTODY.IF A CONFIRMATION OF POSITIVE RESULTS IS DESIRED, ACONFIRMATION TEST MUST BE REQUESTED BY THE PHYSICIAN AT ANADDITIONAL CHARGE TO THE PATIENT. URINALYSIS [id number] 22:29:00* Test Item Value Reference Range Interpretation Comments UA COLOR (test code = COLU) Light-Yellow YELLOW UA APPEARANCE (test code = APPU) CLEAR CLEAR UA GLUCOSE DIPSTICK (test code = DGLUU) NEGATIVE mg/dL NEGATIVE UA BILIRUBIN DIPSTICK (test code = BILU) NEGATIVE mg/dL NEGATIVE UA KETONE DIPSTICK (test code = KETU) TRACE mg/dL NEGATIVE A UA SPECIFIC GRAVITY (test code = SGU) 1.012 1.001-1.035 UA BLOOD DIPSTICK (test code = SNEHAL) Negative mg/dL NEGATIVE UA PH DIPSTICK (test code = CATRACHITA) 5.0 5.0-8.0 UA PROTEIN DIPSTICK (test code = PROU) NEGATIVE mg/dL NEGATIVE UA UROBILINIOGEN DIPSTICK (test code = URO) Normal mg/dL NEGATIVE UA NITRITE DIPSTICK (test code = ABIGAIL) NEGATIVE NEGATIVE UA LEUKOCYTE ESTERASE W REFLEX (test code = LEUUR) NEGATIVE Elias/uL NEGATIVE UA WBC (test code = WBCU) 0-5 per HPF 0-5 UA RBC (test code = RBCU) 0-2 #/HPF 0-5 UA EPITHELIAL CELLS (test code = EPIU) FEW per HPF FEW UA BACTERIA (test code = BACU) FEW #/HPF NONE A UA MUCUS (test code = MUCU) FEW #/LPF FEW UA OVAL FAT BODY (test code = OFBU) . NONE Urine Source? Clean CatchDRUGS OF ABUSE SCREEN [id number] 22:29:00* Test Item Value Reference Range Interpretation Comments URN COCAINE (test code = COCAURN) <300 ng/mL URN CANNABINOIDS (test code = CANNABURN) <50 ng/mL URN AMPHETAMINE (test code = AMPHETURN) <1000 ng/mL URN BARBITURATE (test code = BARBITURN) <200 ng/mL URN BENZODIAZEPINE (test code = BENZOURN) <200 ng/mL URN OPIATES (test code = OPIATURN) <300 ng/mL URN PHENCYCLIDINE (PCP) (test code = PHENCURN) <25 ng/ mL URN METHADONE (test code = METHAURN) <300 ng/mL Urine Source? Clean CatchBASIC METABOLIC [id number] 22:25:00* Test Item Value Reference Range Interpretation Comments SODIUM (test code = NA) 146 mmol/L 136-145 H POTASSIUM (test code = K) 3.7 mmol/L 3.5-5.1 N CHLORIDE (test code = CL) 111.0 mmol/L 98-107 H CARBON DIOXIDE (test code = CO2) mmol/L 21-32 ANION GAP (test code = GAP) 10-20 GLUCOSE (test code = GLU) mg/dL 74-106 BLOOD UREA NITROGEN (test code = BUN) mg/dL 7-18 GLOMERULAR FILTRATION RATE (test code = GFR) mL/min >=60 CREATININE (test code = CREAT) mg/dL 0.7-1.3 BUN/CREATININE RATIO (test code = BUN/CREA) 10-20 CALCIUM (test code = CA) mg/dL 8.5-10.1 HEPATIC FUNCTION [id number] 22:25:00* Test Item Value Reference Range Interpretation Comments TOTAL PROTEIN (test code = PROT) gram/dL 6.4-8.2 ALBUMIN (test code = ALB) g/dL 3.4-5.0 GLOBULIN (test code = GLOB) gram/dL 2.7-4.2 ALBUMIN/GLOBULIN RATIO (test code = A/G) 0.75-1.50 BILIRUBIN TOTAL (test code = BILT) mg/dL 0.0-1.0 BILIRUBIN DIRECT (test code = BILD) mg/dL 0.0-0.20 SGOT/AST (test code = AST) IUnit/L 15-37 SGPT/ALT (test code = ALT) IUnit/L 12-78 ALKALINE PHOSPHATASE TOTAL (test code = ALKP) IUnit/L 45-117 [id number] 22:25:00* Test Item Value Reference Range Interpretation Comments ALCOHOL (test code = ALC) mg/dL 0-3 CBC W/O [id number] 22:17:00* Test Item Value Reference Range Interpretation Comments WHITE BLOOD CELL (test code = WBC) K/mm3 4.5-12.5 RED BLOOD CELL (test code = RBC) mill/mm3 4.0-5.8 HEMOGLOBIN (test code = HGB) 14.4 gram/dL 13.0-17.5 N HEMATOCRIT (test code = HCT) 43.0 % 42.0-52.0 N MEAN CELL VOLUME (test code = MCV) fL 80-98 MEAN CELL HGB (test code = MCH) picogram 27.0-33.0 MEAN CELL HGB CONCETRATION (test code = MCHC) gram/dL 33.0-36. 0 RED CELL DISTRIBUTION WIDTH (test code = RDW) % 11.6-16. 2 PLATELET COUNT (test code = PLT) K/mm3 150-450 MEAN PLATELET VOLUME (test code = MPV) fL 6.7-11.0 CBC W/O [id number] 22:17:00* Test Item Value Reference Range Interpretation Comments WHITE BLOOD CELL (test code = WBC) 13.3 K/mm3 4.5-12.5 H RED BLOOD CELL (test code = RBC) 4.67 mill/mm3 4.0-5.8 N HEMOGLOBIN (test code = HGB) 14.4 gram/dL 13.0-17.5 N HEMATOCRIT (test code = HCT) 43.0 % 42.0-52.0 N MEAN CELL VOLUME (test code = MCV) 92.1 fL 80-98 N MEAN CELL HGB (test code = MCH) 30.8 picogram 27.0-33.0 N MEAN CELL HGB CONCETRATION (test code = MCHC) 33.5 gram/dL 33.0-36. 0 N RED CELL DISTRIBUTION WIDTH (test code = RDW) 12.8 % 11.6-16. 2 N PLATELET COUNT (test code = PLT) 297 K/mm3 150-450 N MEAN PLATELET VOLUME (test code = MPV) 9.8 fL 6.7-11.0 N URINALYSIS [id number] 22:16:00* Test Item Value Reference Range Interpretation Comments UA COLOR (test code = COLU) Light-Yellow YELLOW UA APPEARANCE (test code = APPU) CLEAR CLEAR UA GLUCOSE DIPSTICK (test code = DGLUU) NEGATIVE mg/dL NEGATIVE UA BILIRUBIN DIPSTICK (test code = BILU) NEGATIVE mg/dL NEGATIVE UA KETONE DIPSTICK (test code = KETU) TRACE mg/dL NEGATIVE A UA SPECIFIC GRAVITY (test code = SGU) 1.012 1.001-1.035 UA BLOOD DIPSTICK (test code = SNEHAL) Negative mg/dL NEGATIVE UA PH DIPSTICK (test code = CATRACHITA) 5.0 5.0-8.0 UA PROTEIN DIPSTICK (test code = PROU) NEGATIVE mg/dL NEGATIVE UA UROBILINIOGEN DIPSTICK (test code = URO) Normal mg/dL NEGATIVE UA NITRITE DIPSTICK (test code = ABIGAIL) NEGATIVE NEGATIVE UA LEUKOCYTE ESTERASE W REFLEX (test code = LEUUR) NEGATIVE Elias/uL NEGATIVE UA WBC (test code = WBCU) per HPF 0-5 UA RBC (test code = RBCU) per HPF 0-5 UA EPITHELIAL CELLS (test code = EPIU) per HPF Few UA BACTERIA (test code = BACU) per HPF NONE Urine Source? Clean CatchDRUGS OF ABUSE SCREEN [id number] 22:16:00* Test Item Value Reference Range Interpretation Comments URN COCAINE (test code = COCAURN) <300 ng/mL URN CANNABINOIDS (test code = CANNABURN) <50 ng/mL URN AMPHETAMINE (test code = AMPHETURN) <1000 ng/mL URN BARBITURATE (test code = BARBITURN) <200 ng/mL URN BENZODIAZEPINE (test code = BENZOURN) <200 ng/mL URN OPIATES (test code = OPIATURN) <300 ng/mL URN PHENCYCLIDINE (PCP) (test code = PHENCURN) <25 ng/ mL URN METHADONE (test code = METHAURN) <300 ng/mL Urine Source? Clean CatchURINALYSIS [id number] 15:44:00* Test Item Value Reference Range Interpretation Comments UA COLOR (test code = COLU) COLORLESS YELLOW A UA APPEARANCE (test code = APPU) CLEAR CLEAR UA GLUCOSE DIPSTICK (test code = DGLUU) NEGATIVE mg/dL NEGATIVE UA BILIRUBIN DIPSTICK (test code = BILU) NEGATIVE mg/dL NEGATIVE UA KETONE DIPSTICK (test code = KETU) NEGATIVE mg/dL NEGATIVE UA SPECIFIC GRAVITY (test code = SGU) 1.002 1.001-1.035 UA BLOOD DIPSTICK (test code = SNEHAL) Negative mg/dL NEGATIVE UA PH DIPSTICK (test code = CATRACHITA) 5.5 5.0-8.0 UA PROTEIN DIPSTICK (test code = PROU) NEGATIVE mg/dL NEGATIVE UA UROBILINIOGEN DIPSTICK (test code = URO) Normal mg/dL NEGATIVE UA NITRITE DIPSTICK (test code = ABIGAIL) NEGATIVE NEGATIVE UA LEUKOCYTE ESTERASE W REFLEX (test code = LEUUR) NEGATIVE Elias/uL NEGATIVE UA WBC (test code = WBCU) 0-5 per HPF 0-5 UA RBC (test code = RBCU) 0-3 per HPF 0-5 UA EPITHELIAL CELLS (test code = EPIU) None seen per HPF Few UA BACTERIA (test code = BACU) NONE SEEN per HPF NONE Urine Source? Clean CatchDRUGS OF ABUSE SCREEN [id number] 15:44:00* Test Item Value Reference Range Interpretation Comments URN COCAINE (test code = COCAURN) NEGATIVE <300 ng/mL URN CANNABINOIDS (test code = CANNABURN) NEGATIVE <50 ng/mL URN AMPHETAMINE (test code = AMPHETURN) NEGATIVE <1000 ng/mL URN BARBITURATE (test code = BARBITURN) NEGATIVE <200 ng/mL URN BENZODIAZEPINE (test code = BENZOURN) NEGATIVE <200 ng/mL URN OPIATES (test code = OPIATURN) NEGATIVE <300 ng/mL URN PHENCYCLIDINE (PCP) (test code = PHENCURN) NEGATIVE <25 ng/ mL URN METHADONE (test code = METHAURN) NEGATIVE <300 ng/mL Urine Source? Clean CatchURINALYSIS [id number] 15:40:00* Test Item Value Reference Range Interpretation Comments UA COLOR (test code = COLU) COLORLESS YELLOW A UA APPEARANCE (test code = APPU) CLEAR CLEAR UA GLUCOSE DIPSTICK (test code = DGLUU) NEGATIVE mg/dL NEGATIVE UA BILIRUBIN DIPSTICK (test code = BILU) NEGATIVE mg/dL NEGATIVE UA KETONE DIPSTICK (test code = KETU) NEGATIVE mg/dL NEGATIVE UA SPECIFIC GRAVITY (test code = SGU) 1.002 1.001-1.035 UA BLOOD DIPSTICK (test code = SNEHAL) Negative mg/dL NEGATIVE UA PH DIPSTICK (test code = CATRACHITA) 5.5 5.0-8.0 UA PROTEIN DIPSTICK (test code = PROU) NEGATIVE mg/dL NEGATIVE UA UROBILINIOGEN DIPSTICK (test code = URO) Normal mg/dL NEGATIVE UA NITRITE DIPSTICK (test code = ABIGAIL) NEGATIVE NEGATIVE UA LEUKOCYTE ESTERASE W REFLEX (test code = LEUUR) NEGATIVE Elias/uL NEGATIVE UA WBC (test code = WBCU) 0-5 per HPF 0-5 UA RBC (test code = RBCU) 0-3 per HPF 0-5 UA EPITHELIAL CELLS (test code = EPIU) None seen per HPF Few UA BACTERIA (test code = BACU) NONE SEEN per HPF NONE Urine Source? Clean CatchDRUGS OF ABUSE SCREEN [id number] 15:40:00* Test Item Value Reference Range Interpretation Comments URN COCAINE (test code = COCAURN) <300 ng/mL URN CANNABINOIDS (test code = CANNABURN) <50 ng/mL URN AMPHETAMINE (test code = AMPHETURN) <1000 ng/mL URN BARBITURATE (test code = BARBITURN) <200 ng/mL URN BENZODIAZEPINE (test code = BENZOURN) <200 ng/mL URN OPIATES (test code = OPIATURN) <300 ng/mL URN PHENCYCLIDINE (PCP) (test code = PHENCURN) <25 ng/ mL URN METHADONE (test code = METHAURN) <300 ng/mL Urine Source? Clean CatchBASIC METABOLIC [id number] 15:39:00* Test Item Value Reference Range Interpretation Comments SODIUM (test code = NA) 144 mmol/L 136-145 N POTASSIUM (test code = K) 4.3 mmol/L 3.5-5.1 N CHLORIDE (test code = CL) 110.0 mmol/L 98-107 H CARBON DIOXIDE (test code = CO2) 28.0 mmol/L 21-32 N ANION GAP (test code = GAP) 10.3 10-20 N GLUCOSE (test code = GLU) 73 mg/dL 74-106 L BLOOD UREA NITROGEN (test code = BUN) 8 mg/dL 7-18 N GLOMERULAR FILTRATION RATE (test code = GFR) > 60 mL/min >=60 Estimated GFR by using Modified MDRD formula.Chronic kidney disease is defined as either kidney damageor GFR <60 mL/min/1.73 m2 for >3 months. CREATININE (test code = CREAT) 0.80 mg/dL 0.7-1.3 N BUN/CREATININE RATIO (test code = BUN/CREA) 9.8 10-20 L CALCIUM (test code = CA) 9.0 mg/dL 8.5-10.1 N HEPATIC FUNCTION [id number] 15:39:00* Test Item Value Reference Range Interpretation Comments TOTAL PROTEIN (test code = PROT) 7.8 gram/dL 6.4-8.2 N ALBUMIN (test code = ALB) 4.1 g/dL 3.4-5.0 N GLOBULIN (test code = GLOB) 3.7 gram/dL 2.7-4.2 N ALBUMIN/GLOBULIN RATIO (test code = A/G) 1.1 0.75-1.50 N BILIRUBIN TOTAL (test code = BILT) 0.40 mg/dL 0.0-1.0 N BILIRUBIN DIRECT (test code = BILD) 0.13 mg/dL 0.0-0.20 N SGOT/AST (test code = AST) 8 IUnit/L 15-37 L SGPT/ALT (test code = ALT) 18 IUnit/L 12-78 N ALKALINE PHOSPHATASE TOTAL (test code = ALKP) 67 IUnit/L 45-117 N Note change in reference range due to change in reagent. [id number] 15:39:00* Test Item Value Reference Range Interpretation Comments ALCOHOL (test code = ALC) 111 mg/dL 0.0-3.0 H -- INTERPRETIVE DATA NOTE: POSITIVE SCREENING RESULTS SHOULD BE CONSIDERED PRESUMPTIVE.WHEN COLLECTED FOR MEDICAL PURPOSES ONLY. SPECIMEN WILL NOTBE COLLECTED BY CHAIN OF CUSTODY.IF A CONFIRMATION OF POSITIVE RESULTS IS DESIRED, ACONFIRMATION TEST MUST BE REQUESTED BY THE PHYSICIAN AT ANADDITIONAL CHARGE TO THE PATIENT. BASIC METABOLIC [id number] 15:33:00* Test Item Value Reference Range Interpretation Comments SODIUM (test code = NA) 144 mmol/L 136-145 N POTASSIUM (test code = K) 4.3 mmol/L 3.5-5.1 N CHLORIDE (test code = CL) 110.0 mmol/L 98-107 H CARBON DIOXIDE (test code = CO2) mmol/L 21-32 ANION GAP (test code = GAP) 10-20 GLUCOSE (test code = GLU) mg/dL 74-106 BLOOD UREA NITROGEN (test code = BUN) mg/dL 7-18 GLOMERULAR FILTRATION RATE (test code = GFR) mL/min >=60 CREATININE (test code = CREAT) mg/dL 0.7-1.3 BUN/CREATININE RATIO (test code = BUN/CREA) 10-20 CALCIUM (test code = CA) mg/dL 8.5-10.1 HEPATIC FUNCTION [id number] 15:33:00* Test Item Value Reference Range Interpretation Comments TOTAL PROTEIN (test code = PROT) gram/dL 6.4-8.2 ALBUMIN (test code = ALB) g/dL 3.4-5.0 GLOBULIN (test code = GLOB) gram/dL 2.7-4.2 ALBUMIN/GLOBULIN RATIO (test code = A/G) 0.75-1.50 BILIRUBIN TOTAL (test code = BILT) mg/dL 0.0-1.0 BILIRUBIN DIRECT (test code = BILD) mg/dL 0.0-0.20 SGOT/AST (test code = AST) IUnit/L 15-37 SGPT/ALT (test code = ALT) IUnit/L 12-78 ALKALINE PHOSPHATASE TOTAL (test code = ALKP) IUnit/L 45-117 [id number] 15:33:00* Test Item Value Reference Range Interpretation Comments ALCOHOL (test code = ALC) mg/dL 0-3 URINALYSIS [id number] 15:31:00* Test Item Value Reference Range Interpretation Comments UA COLOR (test code = COLU) COLORLESS YELLOW A UA APPEARANCE (test code = APPU) CLEAR CLEAR UA GLUCOSE DIPSTICK (test code = DGLUU) NEGATIVE mg/dL NEGATIVE UA BILIRUBIN DIPSTICK (test code = BILU) NEGATIVE mg/dL NEGATIVE UA KETONE DIPSTICK (test code = KETU) NEGATIVE mg/dL NEGATIVE UA SPECIFIC GRAVITY (test code = SGU) 1.002 1.001-1.035 UA BLOOD DIPSTICK (test code = SNEHAL) Negative mg/dL NEGATIVE UA PH DIPSTICK (test code = CATRACHITA) 5.5 5.0-8.0 UA PROTEIN DIPSTICK (test code = PROU) NEGATIVE mg/dL NEGATIVE UA UROBILINIOGEN DIPSTICK (test code = URO) Normal mg/dL NEGATIVE UA NITRITE DIPSTICK (test code = ABIGAIL) NEGATIVE NEGATIVE UA LEUKOCYTE ESTERASE W REFLEX (test code = LEUUR) NEGATIVE Elias/uL NEGATIVE UA WBC (test code = WBCU) per HPF 0-5 UA RBC (test code = RBCU) per HPF 0-5 UA EPITHELIAL CELLS (test code = EPIU) per HPF Few UA BACTERIA (test code = BACU) per HPF NONE Urine Source? Clean CatchDRUGS OF ABUSE SCREEN [id number] 15:31:00* Test Item Value Reference Range Interpretation Comments URN COCAINE (test code = COCAURN) <300 ng/mL URN CANNABINOIDS (test code = CANNABURN) <50 ng/mL URN AMPHETAMINE (test code = AMPHETURN) <1000 ng/mL URN BARBITURATE (test code = BARBITURN) <200 ng/mL URN BENZODIAZEPINE (test code = BENZOURN) <200 ng/mL URN OPIATES (test code = OPIATURN) <300 ng/mL URN PHENCYCLIDINE (PCP) (test code = PHENCURN) <25 ng/ mL URN METHADONE (test code = METHAURN) <300 ng/mL Urine Source? Clean CatchCBC W/O [id number] 15:22:00* Test Item Value Reference Range Interpretation Comments WHITE BLOOD CELL (test code = WBC) 9.6 K/mm3 4.5-12.5 N RED BLOOD CELL (test code = RBC) 4.44 mill/mm3 4.0-5.8 N HEMOGLOBIN (test code = HGB) 13.5 gram/dL 13.0-17.5 N HEMATOCRIT (test code = HCT) 40.9 % 42.0-52.0 L MEAN CELL VOLUME (test code = MCV) 92.1 fL 80-98 N MEAN CELL HGB (test code = MCH) 30.4 picogram 27.0-33.0 N MEAN CELL HGB CONCETRATION (test code = MCHC) 33.0 gram/dL 33.0-36. 0 N RED CELL DISTRIBUTION WIDTH (test code = RDW) 12.9 % 11.6-16. 2 N PLATELET COUNT (test code = PLT) 218 K/mm3 150-450 N MEAN PLATELET VOLUME (test code = MPV) 9.7 fL 6.7-11.0 N CBC W/O [id number] 15:20:00* Test Item Value Reference Range Interpretation Comments WHITE BLOOD CELL (test code = WBC) K/mm3 4.5-12.5 RED BLOOD CELL (test code = RBC) mill/mm3 4.0-5.8 HEMOGLOBIN (test code = HGB) 13.5 gram/dL 13.0-17.5 N HEMATOCRIT (test code = HCT) % 42.0-52.0 MEAN CELL VOLUME (test code = MCV) fL 80-98 MEAN CELL HGB (test code = MCH) picogram 27.0-33.0 MEAN CELL HGB CONCETRATION (test code = MCHC) gram/dL 33.0-36. 0 RED CELL DISTRIBUTION WIDTH (test code = RDW) % 11.6-16. 2 PLATELET COUNT (test code = PLT) K/mm3 150-450 MEAN PLATELET VOLUME (test code = MPV) fL 6.7-11.0 Fecal Occult [id number] 19:00:00* Test Item Value Reference Range Interpretation Comments Occult Blood (test code = 00171-2) Negative Negative Lab Interpretation (test code = 43853-8) [id number]* Test Item Value Reference Range Interpretation Comments VIVEK Screen (test code = 49780954) Negative Negative Lab Interpretation (test code = 14642-5) [facility] & [id number] 20:07:00* Test Item Value Reference Range Interpretation Comments CCP Antibodies IgG/IgA (test code = 21644-3) 6 0- 19 uni ts Negative <20 Weak positive 20 - 39 Moderate positive 40 - 59 Strong positive >59 SINDY (test code = SINDY) Performed at: [address] [place] [address] [id number] Director: Aurora Gautam MD, Phone: [phone] [facility] [id number] 10:44:57IMPRESSION: No acute radiographic abnormalities. Dictated By: Eldon Mcnair MD, 11/25/2018 8:56 AM I have reviewed the study and agree with the findings in this report. Signed By: Sohail Quiñones DO, 11/25/2018 10:44 AM Interface, Rad/AppBrickog In - 11/25/2018 10:50 AM CDTEXAM: XRAY HAND 2 VIEWS - 2 ImagesHISTORY: hand pain COMPARISON: Right finger radiograph from 08/19/2009DISCUSSION: Bone: No evidence of a fracture or malalignment. Joints: The joint spaces are well maintained and no erosions.Soft tissues: Unremarkable.IMPRESSIONIMPRESSION: No acute radiographic abnormalities. Dictated By: Eldon Mcnair MD, 11/25/2018 8:56 AMI have reviewed the study and agree with the findings in this report.Signed By: Sohail Quiñones DO, 11/25/2018 10:44 [facility] [id number] 10:44:50 IMPRESSION: No acute radiographic abnormalities. Dictated By: Eldon Mcnair MD, 11/25/2018 9:04 AM I have reviewed the study and agree with the findings in this report. Signed By: Sohail Quiñones DO, 11/25/2018 10:44 AM Interface, Rad/Mammog In - 11/25/2018 10:49 AM CDTEXAM: XRAY RIGHT SHOULDER 2 VIEWS MIN - 3 ImagesHISTORY : right shoulder pain COMPARISON: NoneDISCUSSION: Bone: No evidence of a fract ure or malalignment. Joints: The joint spaces are well maintained and no erosion s.Adequate internal and external rotationSoft tissues: Unremarkable.IMPRESSIONI MPRESSION: No acute radiographic abnormalities.Dictated By: Eldon Mcnair MD, 9:04 AMI have reviewed the study and agree with the findings in this rep ort.Signed By: Sohail Quiñones DO, 11/25/2018 10:44 [facility] SO[facility] [id number] 10:44:40IMPRESSION:No acute radiographic abnormality.If concern for soft tissue mass recommend CT with contrast of the softtissue neck for further evaluation. Dictated By: Eldon Mcnair MD, 11/25/2018 9:35 AM I have reviewed the study and agree with the findings in this report. Signed By: Sohail Quiñones DO, 11/25/2018 10:44 AM Interface, Rad/Mammog In - 11/25/2018 10:49 AM CDTEXAM: Soft Tissue Neck RADIOGRAPHTECHNIQUE 2 imagesHISTORY: neck painCOMPARISON: NoneDISCUSSION:On the lateral view, the cervical spine is visualized from the level ofthe skull base to C6.Mild straightening of the normal cervical lordosisNo acute displaced fracture, within the limitations of this exam.Discs and Uncovertebral Joints:The disc spaces are well- maintained.Facet Joints:Unremarkable.Soft Tissue:Questionable soft tissue f ullness at the base of the left neck. IMPRESSIONIMPRESSION:No acute radiographic abnormality.If concern for soft tissue mass recommend CT with contrast of the s ofttissue neck for further evaluation.Dictated By: Eldon Mcnair MD, 11/25/2018 9 :35 AMI have reviewed the study and agree with the findings in this report.Alba d By: Sohail Quiñones DO, 11/25/2018 10:44 [facility] [id number] 09:58:00 * Test Item Value Reference Range Interpretation Comments Sed Rate (test code = 47704025) 1 0-<15 mm/Hr Lab Interpretation (test code = 57446-1) Normal [facility][id number] 08:18:00* Test Item Value Reference Range Interpretation Comments WBC (test code = 6690-2) 10.7 K/uL 4.5-12 RBC (test code = 789-8) 4.63 4.60- 6.20 M/uL Hemoglobin (test code = 718-7) 14.2 g/dL 14-18 Hematocrit (test code = 4544-3) 44.1 % 40-54 MCV (test code = 787-2) 95.2 fL 82-92 H MCH (test code = 785-6) 30.7 pg 27-31 MCHC (test code = 786-4) 32.2 g/dL 32-36 RDW (test code = 40111-0) 45.3 fL 35.1-43.9 H Platelet (test code = 777-3) 237 K/uL 150-400 Mean Platelet Volume (test code = 29192-4) 11.2 fL 9.4-12.4 Percent NRBC (test code = 75926249) 0.0 % Neutrophil (test code = 770-8) 58.3 % 34-67.9 Lymphs (test code = 736-9) 31.1 % 21.8-50 Monocytes (test code = 5905-5) 7.6 % 5.3-12 Eos (test code = 713-8) 1.4 % 0.8-5 Basos (test code = 706-2) 0.7 % 0.2-1.2 Immature Granulocytes (test code = 20784206) 0.9 % 0-0.5 H Neutrophils (Absolute) (test code = 37009929) 6.23 K/uL 1.78-5.3 6 H Lymphs (Absolute) (test code = 66421238) 3.32 K/uL 1.32-3.57 Monocytes(Absolute) (test code = 14892692) 0.81 K/uL 0.3-0.82 Eos (Absolute) (test code = 48538373) 0.15 K/uL 0.04-0.54 Baso (Absolute) (test code = 21053114) 0.08 K/uL 0.01-0.08 Immature Grans (Abs) (test code = 91479191) 0.10 K/uL 0-0.03 H Absolute NRBC (test code = 93670882) 0.00 K/uL Lab Interpretation (test code = 08311-8) Abnormal [facility]RA [id number] 07:47:00* Test Item Value Reference Range Interpretation Comments RA (test code = 55125741) <10 <14 IU/mL Lab Interpretation (test code = 37344-2) [facility] [id number] 17:04:00* Test Item Value Reference Range Interpretation Comments UA COLOR (test code = COLU) LIGHT YELLOW YELLOW UA APPEARANCE (test code = APPU) CLEAR CLEAR UA GLUCOSE DIPSTICK (test code = DGLUU) NEGATIVE mg/dL NEGATIVE UA BILIRUBIN DIPSTICK (test code = BILU) NEGATIVE mg/dL NEGATIVE UA KETONE DIPSTICK (test code = KETU) Negative mg/dL NEGATIVE UA SPECIFIC GRAVITY (test code = SGU) 1.006 1.001-1.035 UA BLOOD DIPSTICK (test code = SNEHAL) Negative NEGATIVE UA PH DIPSTICK (test code = CATRACHITA) 7.0 5.0-8.0 UA PROTEIN DIPSTICK (test code = PROU) Negative mg/dL NEGATIVE UA UROBILINIOGEN DIPSTICK (test code = URO) NEGATIVE mg/dL NEGATIVE UA NITRITE DIPSTICK (test code = ABIGAIL) NEGATIVE NEGATIVE UA LEUKOCYTE ESTERASE W REFLEX (test code = LEUUR) NEGATIVE NEG ATIVE UA WBC (test code = WBCU) 0-5 #/HPF 0-5 UA RBC (test code = RBCU) 0-3 #/HPF 0-5 UA EPITHELIAL CELLS (test code = EPIU) Rare (0-1/hpf) per HPF FEW UA BACTERIA (test code = BACU) NONE SEEN #/HPF NONE Urine Source? Clean CatchDRUGS OF ABUSE SCREEN [id number] 17:04:00* Test Item Value Reference Range Interpretation Comments URN COCAINE (test code = COCAURN) NEGATIVE <300 ng/mL URN CANNABINOIDS (test code = CANNABURN) POSITIVE <50 ng/mL A This test provides only a preliminary test result. A morespecific alternate chemical method must be used in order toobtain a confirmed analytical result. Gas chromatography/mass spectrometry (GC/MS) is thepreferred confirmatory method. Other chemical confirmationmethods are available. Clinical consideration and professional judgment should be applied to any drug of abusetest result, particularly when preliminary positive resultsare used.Unconfirmed screening results must not be used fornon-medical purposes (e.g., employment testing, legaltesting). URN AMPHETAMINE (test code = AMPHETURN) NEGATIVE <1000 ng/mL URN BARBITURATE (test code = BARBITURN) NEGATIVE <200 ng/mL URN BENZODIAZEPINE (test code = BENZOURN) NEGATIVE <200 ng/mL URN OPIATES (test code = OPIATURN) NEGATIVE <300 ng/mL URN PHENCYCLIDINE (PCP) (test code = PHENCURN) NEGATIVE <25 ng/ mL URN METHADONE (test code = METHAURN) NEGATIVE <300 ng/mL Urine Source? Clean CatchURINALYSIS [id number] 16:49:00* Test Item Value Reference Range Interpretation Comments UA COLOR (test code = COLU) LIGHT YELLOW YELLOW UA APPEARANCE (test code = APPU) CLEAR CLEAR UA GLUCOSE DIPSTICK (test code = DGLUU) NEGATIVE mg/dL NEGATIVE UA BILIRUBIN DIPSTICK (test code = BILU) NEGATIVE mg/dL NEGATIVE UA KETONE DIPSTICK (test code = KETU) Negative mg/dL NEGATIVE UA SPECIFIC GRAVITY (test code = SGU) 1.006 1.001-1.035 UA BLOOD DIPSTICK (test code = SNEHAL) Negative NEGATIVE UA PH DIPSTICK (test code = CATRACHITA) 7.0 5.0-8.0 UA PROTEIN DIPSTICK (test code = PROU) Negative mg/dL NEGATIVE UA UROBILINIOGEN DIPSTICK (test code = URO) NEGATIVE mg/dL NEGATIVE UA NITRITE DIPSTICK (test code = ABIGAIL) NEGATIVE NEGATIVE UA LEUKOCYTE ESTERASE W REFLEX (test code = LEUUR) NEGATIVE NEG ATIVE UA WBC (test code = WBCU) 0-5 #/HPF 0-5 UA RBC (test code = RBCU) 0-3 #/HPF 0-5 UA EPITHELIAL CELLS (test code = EPIU) Rare (0-1/hpf) per HPF FEW UA BACTERIA (test code = BACU) NONE SEEN #/HPF NONE Urine Source? Clean CatchDRUGS OF ABUSE SCREEN [id number] 16:49:00* Test Item Value Reference Range Interpretation Comments URN COCAINE (test code = COCAURN) <300 ng/mL URN CANNABINOIDS (test code = CANNABURN) <50 ng/mL URN AMPHETAMINE (test code = AMPHETURN) <1000 ng/mL URN BARBITURATE (test code = BARBITURN) <200 ng/mL URN BENZODIAZEPINE (test code = BENZOURN) <200 ng/mL URN OPIATES (test code = OPIATURN) <300 ng/mL URN PHENCYCLIDINE (PCP) (test code = PHENCURN) <25 ng/ mL URN METHADONE (test code = METHAURN) <300 ng/mL Urine Source? Clean CatchBASIC METABOLIC [id number] 16:17:00* Test Item Value Reference Range Interpretation Comments SODIUM (test code = NA) 139 mmol/L 136-145 N POTASSIUM (test code = K) 3.4 mmol/L 3.5-5.1 L CHLORIDE (test code = CL) 106.0 mmol/L 98-107 N CARBON DIOXIDE (test code = CO2) 24.0 mmol/L 21-32 N ANION GAP (test code = GAP) 12.4 10-20 N GLUCOSE (test code = GLU) 115 mg/dL 74-106 H BLOOD UREA NITROGEN (test code = BUN) 10 mg/dL 7-18 N GLOMERULAR FILTRATION RATE (test code = GFR) > 60 mL/min >=60 Estimated GFR by using Modified MDRD formula.Chronic kidney disease is defined as either kidney damageor GFR <60 mL/min/1.73 m2 for >3 months. CREATININE (test code = CREAT) 0.80 mg/dL 0.7-1.3 N BUN/CREATININE RATIO (test code = BUN/CREA) 12.0 10-20 N CALCIUM (test code = CA) 8.7 mg/dL 8.5-10.1 N HEPATIC FUNCTION [id number] 16:17:00* Test Item Value Reference Range Interpretation Comments TOTAL PROTEIN (test code = PROT) 7.8 gram/dL 6.4-8.2 N ALBUMIN (test code = ALB) 4.1 g/dL 3.4-5.0 N GLOBULIN (test code = GLOB) 3.7 gram/dL 2.7-4.2 N ALBUMIN/GLOBULIN RATIO (test code = A/G) 1.1 0.75-1.50 N BILIRUBIN TOTAL (test code = BILT) 0.40 mg/dL 0.0-1.0 N BILIRUBIN DIRECT (test code = BILD) 0.11 mg/dL 0.0-0.20 N SGOT/AST (test code = AST) 15 IUnit/L 15-37 N SGPT/ALT (test code = ALT) 17 IUnit/L 12-78 N ALKALINE PHOSPHATASE TOTAL (test code = ALKP) 71 IUnit/L 45-117 N Note change in reference range due to change in reagent. [id number] 16:17:00* Test Item Value Reference Range Interpretation Comments ALCOHOL (test code = ALC) < 3 mg/dL 0.0-3.0 N -- INTERPRETIVE DATA NOTE: POSITIVE SCREENING RESULTS SHOULD BE CONSIDERED PRESUMPTIVE.WHEN COLLECTED FOR MEDICAL PURPOSES ONLY. SPECIMEN WILL NOTBE COLLECTED BY CHAIN OF CUSTODY.IF A CONFIRMATION OF POSITIVE RESULTS IS DESIRED, ACONFIRMATION TEST MUST BE REQUESTED BY THE PHYSICIAN AT ANADDITIONAL CHARGE TO THE PATIENT. BASIC METABOLIC [id number] 16:00:00* Test Item Value Reference Range Interpretation Comments SODIUM (test code = NA) 139 mmol/L 136-145 N POTASSIUM (test code = K) 3.4 mmol/L 3.5-5.1 L CHLORIDE (test code = CL) 106.0 mmol/L 98-107 N CARBON DIOXIDE (test code = CO2) mmol/L 21-32 ANION GAP (test code = GAP) 10-20 GLUCOSE (test code = GLU) mg/dL 74-106 BLOOD UREA NITROGEN (test code = BUN) mg/dL 7-18 GLOMERULAR FILTRATION RATE (test code = GFR) mL/min >=60 CREATININE (test code = CREAT) mg/dL 0.7-1.3 BUN/CREATININE RATIO (test code = BUN/CREA) 10-20 CALCIUM (test code = CA) mg/dL 8.5-10.1 HEPATIC FUNCTION [id number] 16:00:00* Test Item Value Reference Range Interpretation Comments TOTAL PROTEIN (test code = PROT) gram/dL 6.4-8.2 ALBUMIN (test code = ALB) g/dL 3.4-5.0 GLOBULIN (test code = GLOB) gram/dL 2.7-4.2 ALBUMIN/GLOBULIN RATIO (test code = A/G) 0.75-1.50 BILIRUBIN TOTAL (test code = BILT) mg/dL 0.0-1.0 BILIRUBIN DIRECT (test code = BILD) mg/dL 0.0-0.20 SGOT/AST (test code = AST) IUnit/L 15-37 SGPT/ALT (test code = ALT) IUnit/L 12-78 ALKALINE PHOSPHATASE TOTAL (test code = ALKP) IUnit/L 45-117 [id number] 16:00:00* Test Item Value Reference Range Interpretation Comments ALCOHOL (test code = ALC) mg/dL 0-3 CBC W/O [id number] 15:34:00* Test Item Value Reference Range Interpretation Comments WHITE BLOOD CELL (test code = WBC) K/mm3 4.5-12.5 RED BLOOD CELL (test code = RBC) mill/mm3 4.0-5.8 HEMOGLOBIN (test code = HGB) 13.3 gram/dL 13.0-17.5 N HEMATOCRIT (test code = HCT) % 42.0-52.0 MEAN CELL VOLUME (test code = MCV) fL 80-98 MEAN CELL HGB (test code = MCH) picogram 27.0-33.0 MEAN CELL HGB CONCETRATION (test code = MCHC) gram/dL 33.0-36. 0 RED CELL DISTRIBUTION WIDTH (test code = RDW) % 11.6-16. 2 PLATELET COUNT (test code = PLT) K/mm3 150-450 MEAN PLATELET VOLUME (test code = MPV) fL 6.7-11.0 CBC W/O [id number] 15:34:00* Test Item Value Reference Range Interpretation Comments WHITE BLOOD CELL (test code = WBC) 12.9 K/mm3 4.5-12.5 H RED BLOOD CELL (test code = RBC) 4.40 mill/mm3 4.0-5.8 N HEMOGLOBIN (test code = HGB) 13.3 gram/dL 13.0-17.5 N HEMATOCRIT (test code = HCT) 39.5 % 42.0-52.0 L MEAN CELL VOLUME (test code = MCV) 89.8 fL 80-98 N MEAN CELL HGB (test code = MCH) 30.2 picogram 27.0-33.0 N MEAN CELL HGB CONCETRATION (test code = MCHC) 33.7 gram/dL 33.0-36. 0 N RED CELL DISTRIBUTION WIDTH (test code = RDW) 13.4 % 11.6-16. 2 N PLATELET COUNT (test code = PLT) 259 K/mm3 150-450 N MEAN PLATELET VOLUME (test code = MPV) 10.0 fL 6.7-11.0 N - XR CHEST 1 [id number] 14:58:00 FAX: Home Dumont DO [place]: [address] St: REG Name: [facility] : 08/[birth year]/18 88 Age/S: 32/M [address] [facility] Unit #: [id number] Loc: [place] [address] Phys: Home Dumont DO Acct: [id number] Dis Date: Status: REG ER PHONE #: [phone] Exam Date: 04/26/2018 1431 FAX #: [phone] Reason: CHEST PAIN EXAMS: CPT CODE: [id number] XR CHEST 1 V 63060 REASON FOR EXAM: CHEST IRAIS N EXAM ORDER DATE: 04/26/2018 2:14 PM Ordering Marychuy: Home Dumont DO PROCEDURE: - XR CHEST 1 V COMPARI SON: FINDINGS: Portable AP frontal view of the chest obtained at 2:31 PM shows clear lungs. There is no evidence of consolidation. There is no evidence of effusion. The heart size is within normal limits. Pu lmonary vasculatures are unremarkable. IMPRESSION: No active di sease. at 1050 * * Reported and signed by: Ran Rider M.D. CC: Home Dumont DO Technologist: Sunitha Ahn(Ebony); STUDENT TECHNOLOGIST Trnscrd Date/Time/By: 2018 ([id number]) : By: Srinath Orig Print D/T: S: 04/26/2018 (8472) PAGE 1 Signed Report DRUG [id number] 01:34:00Negative *NA*(01/01/18 8:34 PM) [facility] [id number] 01:34:00Negative *NA*(01/01/18 8:34 PM) [facility] [id number] 01:34:00Negative *NA*(01/01/18 8:34 PM) [facility] [id number] 01:34:00See Note (01/01/18 8:34 PM) [facility] [id number] 01:34:00Negative *NA*(01/01/18 8:34 PM) [facility] [id number] 01:34:00Negative *NA*(01/01/18 8:34 PM) [facility] [id number] 01:34:00Negative *NA*(01/01/18 8:34 PM) [facility] [id number] 01:34:00Negative *NA*(01/01/18 8:34 PM) [facility]annCARDIAC [id number] 23:10:00<0.02[facility]annCHEM [id number] 21:22:00* Test Item Value Reference Range Interpretation Comments A/G Ratio (test code = A/G Ratio) 1.2 1 0.7-1.6 [facility] [id number] 21:22:003.3[facility]annCHEM PANEL 2018-01-01 21:22:00* Test Item Value Reference Range Interpretation Comments B/C Ratio (test code = B/C Ratio) 16 1 6-25 [facility] [id number] 21:22:0010.1[facility]annCHE[facility] PANEL 2018-01-01 21:22:009[facility]annCHE[facility] [id number] 21:22:0019[facility]annCHE[facility] [id number] 21:22:003.9[facility]annCHE[facility] [id number] 21:22:0071[facility]annCHE[facility] [id number] 21:22:008.9[facility]annCHE[facility] [id number] 21:22:0032[facility]annCHE[facility] [id number] 21:22:55094 [facility] [id number] 21:22:007.2[facility]annCHEM PANEL 2018-01-01 21:22:000.80[facility]annCHE[facility] [id number] 21:22:0013[facility]annCHE[facility] [id number] 21:22:004.1[facility]annCHE[facility] [id number] 21:22:86345Dmouyyxw HermannCHEM SRPMA3644-75-59 21:22:0088[facility]annCHEM ONCIH7601-61-01 21:22:000.3[facility]annCHEM [id number] 21:22:73599 [facility] RiuoediERCPKGJHWI8755-10-28 21:22:0053.6[facility]annHEMATOLOGY 2018-01-01 21:22:0036.0[facility] RsdjpsqNKHXKILKGL9559-54-22 21:22:008.4[facility] WaxcsswSNDGWLVWRO6667-45-83 21:22:002.7[facility] XwiduvwEYUJGRQXBE5406-24-89 21:22:000.6[facility] YlfxvqcMPVKCDERQI7441-27-97 21:22:000.1[facility] WOIQFWPJMA6518-88-28 21:22:000.1[facility] UpjlcrhYTHZSWSDEN2088-47-89 21:22:000.8 [facility] BkpsnemMHUKMOMHZK9648-67-38 21:22:001.2[facility]annHEMATOLOGY 2018-01-01 21:22:004.0[facility] FjzduajVCKDHVPWWN8316-68-34 21:22:0038.1[facility] IozopdoPTLERCDTWU8507-19-91 21:22:0091.2[facility] HtpbnmoITBPLRHEQG4386-16-84 21:22:004.18[facility] RtipmutAMRACXLYPR8617-20-92 21:22:0013.0[facility] [place] XQRUFHDFZS3343-70-08 21:22:007.4[facility] NlufdeiASZCGYEEJQ0452-60-55 21:22:007.8 [facility] ZstqcxfWWOKJFONQU6233-83-91 21:22:00* Test Item Value Reference Range Interpretation Comments MCH (test code = MCH) 31.2 pg 27.0-31.0 [facility] IccmcbzKTPUFIUFCF7324-86-17 21:22:0034.2[facility]annHEMATOLOGY 2018-01-01 21:22:0014.0[facility] SuazvyhRESAWVJDQQ8072-61-05 21:22:48805Twmlodde HwbaiaqQKLTXOTIZE1948-43-63 21:22:00<0.003[facility] VviepanEKYOFPVRFI8556-45-21 21:22:00<3[facility] GyfdfusNYFGNECEPU7452-51-29 21:22:00<2 (01/01/18 4:22 PM) [facility] JbdslboNHTKQMATAZ0137-88-64 21:22:002.7[facility] HermannIMMUNOLOGY 2013-12-25 19:56:00Negative *NA*(12/25/13 2:56 PM)[facility]annIMMUNOLOGY 2013-12-25 19:56:00Negative (12/25/13 2:56 PM)[facility]
== END 2019-11-22 23:43 | disposition home or self-care (01) ==
LOC: FSED 22:05
DX: M54.5 Low back pain (principal); M54.16 Radiculopathy, lumbar region; F41.9 Anxiety disorder, unspecified; Y93.E6 Activity, residential relocation; X50.0XXA Overexertion from strenuous movement or load, initial encounter
CPT/HCPCS: 99283; J1885; J7512

== ENCOUNTER 2020-02-19 14:34 | Emergency (ER) | payer SELFPAY ==
[~2020-02-19] VITALS: Ht 177.8 cm; Wt 68.0 kg
[~2020-02-19 14:34] MED LIST: IBUPROFEN400 MG PO; PREDNISONE20 MG PO; TYLENOL # 31 EA PO
[2020-02-19] MEDS ORDERED: ASPIRIN 81 MG CHEW TAB PO ONE (14:45)
[2020-02-19 16:35] LABS: BASOPHILS # (AUTO) 0.1 (0.0-0.1); BASOPHILS % 0.4 % (0.0-1.0); EOSINOPHILS # (AUTO) 0.1 (0.0-0.4); EOSINOPHILS % 0.4 % (0.0-6.0); HEMATOCRIT 42.7 % (38.2-49.6); HEMOGLOBIN 14.5 g/dL (14.0-18.0); LYMPHOCYTES # (AUTO) 1.4 (1.0-3.2); LYMPHOCYTES % 10.1 % (18.0-39.1); MEAN CORPUSCULAR HEMOGLOBIN 30.3 pg (28-32); MEAN CORPUSCULAR VOLUME 89.3 fL (81-99); MONOCYTES # (AUTO) 1.4 (0.2-0.8); MONOCYTES % 9.7 % (4.4-11.3); NEUTROPHILS # (AUTO) 11.1 (2.1-6.9); NEUTROPHILS % 78.8 % (38.7-80.0); PLATELET COUNT 269 x10e3/uL (140-360); RED BLOOD COUNT 4.78 x10e6/uL (4.3-5.7); RED CELL DISTRIBUTION WIDTH 13.2 % (11.7-14.4)
[2020-02-19 16:54] LABS: ALANINE AMINOTRANSFERASE 19 IU/L (0-55); ALBUMIN 4.7 g/dL (3.5-5.0); ALBUMIN/GLOBULIN RATIO 1.3 (0.8-2.0); ALKALINE PHOSPHATASE 73 IU/L (40-150); ANION GAP 19.4 mmol/L (8-16); BLOOD UREA NITROGEN 20 mg/dL (7-26); BUN/CREATININE RATIO 24 (6-25); CALCIUM 8.9 mg/dL (8.4-10.2); CARBON DIOXIDE 26 mmol/L (22-29); CHLORIDE 93 mmol/L (98-107); CREATINE KINASE 1095 IU/L (30-200); CREATININE, SERUM 0.84 mg/dL (0.72-1.25); EST GLOMERULAR FILTRATION RATE > 60 ML/MIN (60-); GLUCOSE 98 mg/dL (74-118); POTASSIUM 3.4 mmol/L (3.5-5.1); SODIUM 135 mmol/L (136-145)
[2020-02-19 20:23] LABS: AMPHETAMINES SCREEN,URINE POSITIVE (NEGATIVE); PHENCYCLIDINE SCREEN,URINE NEGATIVE (NEGATIVE)
[2020-02-19 20:24] LABS: BENZODIAZEPINES SCREEN,URINE POSITIVE (NEGATIVE)
[2020-02-19] MEDS ORDERED: SODIUM CHLORIDE 0.9% 1000ML 2,000 ML ONE (22:15)
[2020-02-19] MEDS ORDERED: SODIUM CHLORIDE 0.9% 1000ML 1,000 ML IV ONE ×2 (22:15)
[2020-02-19 23:49] LABS: CREATINE KINASE 861 IU/L (30-200)
== END 2020-02-20 00:29 | disposition home or self-care (01) ==
LOC: EDBD 14:34 → ER 15:44
DX: F15.10 Other stimulant abuse, uncomplicated (principal); M25.511 Pain in right shoulder; M54.2 Cervicalgia
CPT/HCPCS: 36415; 70450; 71045; 72125; 80053; 80307; 82550; 82553; 84484; 85025; 93005; 99283; J7030

== ENCOUNTER 2021-02-02 09:30 | Emergency (ER) | payer SELFPAY ==
[~2021-02-02] VITALS: Ht 177.8 cm; Wt 63.5 kg
[2021-02-02 10:52] VITALS: BP 122/75
== END 2021-02-02 10:55 | disposition home or self-care (01) ==
LOC: ER 09:40
DX: F41.9 Anxiety disorder, unspecified (principal); F17.210 Nicotine dependence, cigarettes, uncomplicated
CPT/HCPCS: 99283

== ENCOUNTER 2021-09-14 16:17 | Emergency (ER) | payer MEDICARE ==
[~2021-09-14] VITALS: Ht 177.8 cm; Wt 63.5 kg
[2021-09-14] MEDS ORDERED: HYDROXYZINE HCL50 MG PO (16:32)
== END 2021-09-14 17:09 | disposition home or self-care (01) ==
LOC: ER 16:21
DX: F41.9 Anxiety disorder, unspecified (principal); Z76.0 Encounter for issue of repeat prescription; F90.9 Attention-deficit hyperactivity disorder, unspecified type
CPT/HCPCS: 99283

== ENCOUNTER 2023-03-31 19:18 | Emergency (ER) | payer MEDICARE, OTHER ==
[~2023-03-31] VITALS: Ht 177.8 cm; Wt 70.3 kg
[~2023-03-31 19:18] MED LIST changes: +HYDROXYZINE HCL50 MG PO
[2023-03-31] MEDS ORDERED: HYDROXYZINE HCL25 MG PO (19:41)
[2023-03-31] MEDS ORDERED: HYDROXYZINE HCL 25 MG TAB PO ONE (19:45)
[2023-03-31 20:22] VITALS: BP 127/95; PULSE 109; RESP 20; TEMP 98.3; O2SAT 100
== END 2023-03-31 20:21 | disposition home or self-care (01) ==
LOC: ER 19:26
DX: F41.9 Anxiety disorder, unspecified (principal); F13.239 Sedative, hypnotic or anxiolytic dependence with withdrawal, unspecified; F90.9 Attention-deficit hyperactivity disorder, unspecified type
CPT/HCPCS: 99283; J3410